=== PATIENT | male | born 1950 | race Caucasian/White ===

== ENCOUNTER → 2020-09-20 08:53 | Outpatient (BNVA) | payer BC, SELFPAY | PROVIDERS: PCP Internal Medicine; Visit Provider Hospitalist | DX: Z76.89 Persons encountering health services in other specified circumstances (principal) ==

== ENCOUNTER 2021-08-06 07:51 | Outpatient (REF) | payer OTHER, SELFPAY ==
--- NOTE | 2021-08-06 16:55 | PFT_ITS ---
Forced vital capacity is normal. FEV1, [id number] are markedly decreased. MVV is slightly decreased. Bronchodilator challenge not provided because the patient had used albuterol and Symbicort prior to this test. Total lung capacity is moderately increased and residual volume is also moderately increased. Diffusion capacity markedly decreased. CONCLUSION: Severe obstructive airway disorder with evidence of hyperinflation and air trapping. Bronchodilator challenge not given. Clinical correlation recommended. MD STEVE Nunes/SPENCER / [id number]
== END 2021-08-06 07:52 | disposition home or self-care (01) ==
LOC: HO.RESP 07:51
PROVIDERS: PCP Internal Medicine; Visit Provider Hospitalist
DX: J44.9 Chronic obstructive pulmonary disease, unspecified (principal)
CPT/HCPCS: 94010; 94727; 94729

== ENCOUNTER 2021-10-15 13:04 | Outpatient (REF) | payer OTHER, SELFPAY ==
--- NOTE | ~2021-10-15 | CT_ITS ---
EXAMINATION: CT CHEST SCREENING CLINICAL INFORMATION: Current smoker. Greater than 40 pack-year history. COMPARISON: Previous chest CT July 2019 TECHNIQUE: Multidetector volumetric CT imaging of the chest is performed without contrast using low dose technique. Additional 2D coronal and sagittal reformatted images and axial 3D maximum intensity projection (MIP) images are generated on the CT workstation. This CT examination was performed using dose optimization techniques as appropriate, variously including the following: *Automated exposure control *Adjustment of mA and/or kV according to patient size (this includes techniques or standardized protocols for targeted exams where dose is matched to indication/reason for exam; i.e. extremities or head) *Use of iterative reconstruction technique DLP: 57 mGy-cm FINDINGS: LUNGS: There is evidence of emphysema. There is mild biapical pleural parenchymal scarring. The lungs are otherwise clear. There are small left lower lobe pulmonary nodules that are stable, for example measuring 1 to 2 mm axial image 346 series 5. There is linear scarring or chronic subsegmental atelectasis in the left lower lobe. MEDIASTINUM: There is mild coronary artery calcification. The mediastinum is otherwise normal. PLEURA: There is no pleural effusion. No pleural mass or thickening. AXILLA: No lymphadenopathy. UPPER ABDOMEN: Unremarkable OSSEOUS STRUCTURES: Unremarkable. CT/CT lung screening IMPRESSION: Emphysema. Stable small left lower lobe pulmonary nodules and left lower lobe scarring or chronic subsegmental atelectasis.. Mild coronary artery calcification. ASSESSMENT: Lung-RADS category 2: Benign RECOMMENDATION: Annual low-dose chest CT follow-up recommended.
== END 2021-10-15 13:05 | disposition home or self-care (01) ==
LOC: HO.CT 13:04
PROVIDERS: Visit Provider Physician Assistant Medical
DX: Z12.2 Encounter for screening for malignant neoplasm of respiratory organs (principal); Z87.891 Personal history of nicotine dependence
CPT/HCPCS: 71271

== ENCOUNTER 2022-07-09 07:49 | Outpatient (REF) | payer OTHER, SELFPAY ==
--- NOTE | 2022-07-09 | PFT_ITS ---
Forced vital capacity 119%, FEV1 of 61%, FEV1/FVC ratio is 38. FEF 25/75 of 17% and MVV 57%. Post bronchodilator therapy, there is a slight improvement in FEV1 and FEF 25/75. Total lung capacity 117% and residual volume 112%. Diffusion capacity 43%. CONCLUSIONS: These results are consistent with severe obstructive airway disorder. There is partial reversibility with bronchodilator therapy. Clinical correlation recommended. MD STEVE Nunes/SPENCER / [id number]
== END 2022-07-09 07:50 | disposition home or self-care (01) ==
LOC: HO.RESP 07:49
PROVIDERS: PCP Internal Medicine; Visit Provider Hospitalist
DX: Z23 Encounter for immunization (principal); J44.9 Chronic obstructive pulmonary disease, unspecified; R91.8 Other nonspecific abnormal finding of lung field
CPT/HCPCS: 90471; 90686; 94060; 94618; 94727; 94729

== ENCOUNTER 2023-06-13 08:49 | Outpatient (AMB) | payer OTHER, SELFPAY ==
[2023-06-13 08:54] VITALS: BP 128/70; PULSE 68; O2SAT 96; BMI 24.8
--- NOTE | 2023-06-13 08:54 | A.OFFVIS_ITS ---
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 Overall doing well. Complains of cough, non productive, mild in nature. Using Symbicort with good effect. Denies any dyspnea. Went for 6 minute walk maintaining pox 96%. Had LDCT scan with RADS 2. Pulmonary nodules noted. ALso noted to have a large abdominal cyst. Has a referral with surgery at this time. 09/20/2020 the patient is here for pulm onary follow-up visit. Overall the patient is doing well. He has continued to use his respiratory medications with good effect. He has known pulmonary nodules was postponed to 2020 due the covid19 infections. 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 08/06/2021 the patient is here for a pul monary follow-up visit. Overall the patient has been feeling well. He has been coughing up more mucus lately. The color is been yellowish to green. It is moderate severity. This is something new for the last few weeks. Patient has not taking any medicines for it he continues to be on the Symbicort and Spiriva good effect. He also has a rescue inhaler. He did have pulmonary function studies today that we did look at. It appears that he does have a moderate degree of COPD. Trapping hyperinflation due to his COPD and there is a significant diffuse impairment. The patient did have a 6 minutes walk test. He did walk very well in the family. He did saturate down to 90% with activity. He quickly improved to 95% with rest. The patient does not qualify for oxygen. He still driving has a [employer] license. At this point the patient is doing well will continue to work without any limitations from a respiratory status. Of the patient has not had his CT scan of the chest as part of the lung cancer screening program. Will look into this further because he should be getting 1 this year 2020. 07/09/2022 the patient is here for a pulmonary follow-up visit. Overall the patient continues to do very well. He continues to work full-time as well. He denies any significant shortness of breath chest pains or any significant cough. The patient is compliant with his respiratory medications including Symbicort Spiriva and does have a rescue inhaler. He rarely uses a rescue inhaler at this time. The patient did undergo pulmonary function studies demonstrating moderate degree of COPD which is very similar to his previous. In addition to that he did go for 6 minutes walk test and maintain a saturation of the 94% with the activity. 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 The patient also is participating in the lung cancer screening program. His last CT scan was in October 2021. He will be scheduled to have another CT scan in October 2022. 06/13/2023 the patient is here for pulmona ry follow-up visit. Overall he is doing great. He continues with respiratory therapy. He is will be going surgery for his bladder issues. From a respiratory status he has no limitations. The patient continues to work full-time. The patient has not had any respiratory complaints. The patient has not required any prednisone or any hospitalizations. He will undergo spirometry today 6 minutes walk test. The patient is doing very well and is able to continue working without any limitations. [facility] Medical History (Updated 06/15/23 @ 20:58 by Elvin Canchola MD) Pulmonary nodules Unspecified chronic bronchitis COPD (chronic obstructive pulmonary disease) Social History (Updated 08/06/21 @ 09:24 by SHIRLEY Palacios) Patient Tobacco Use Status: Former Tobacco user Tobacco use type: Cigarette Years Smoked: 40 years Review of Systems Const Denies night sweats ENT Denies change in voice, Denies lip swelling, Denies mouth pain, Reports nasal congestion, Reports nasal discharge and Denies tongue swelling Card Denies chest pain Resp Reports cough GI Denies abdominal pain Musc Denies no additional complaints Neuro Denies Neuro-related abnormal movements Psych Denies no additional complaints Venkatesh/Lymph Denies easy bleeding and Denies lymphadenopathy Aller/Immun Denies lip swelling and Denies tongue swelling Physical Exam Vital Signs: Last Vital Signs Pulse 68 06/13/23 08:54 BP 128/70 06/13/23 08:54 Pulse Ox 96 06/13/23 08:54 Oxygen Delivery Method Room Air 06/13/23 08:54 BMI result Body Mass Index 24.8 Const General: alert Neck Neck: Yes normal visual inspection, Yes full ROM and Yes no lymphadenopathy Chest Chest palpation & inspection: normal inspection of the chest Resp Auscultation: diminished lung sounds Cardio Rate: regular rate Rhythm: regular rhythm Heart sounds: S1 normal heart sound present and S2 normal heart sound present GI Palpation (GI): Soft to palpation and nontender Auscultation: normal bowel sounds Skin General skin exam: rashes and/or lesions noted Office Procedures 6 Minute Walk Time:: 20:57 SPO2 % at rest: 96 Pulse at rest: 89 SPO2 % during excercise: 92 Pulse during excercise: 97 Distance in yards walked: 300 Arturo Score: 3 75291 - 6 Minute Walk Spirometry Testing Spirometry Comments: Moderate COPD, inchanged from 2021 26705- Spirometry Assessment & Plan Assessment & Plan (1) COPD (chronic obstructive pulmonary disease): Code(s): J44.9 - Chronic obstructive pulmonary disease, unspecified Qualifiers: COPD type: chronic bronchitis Chronic bronchitis type: simple Qualified Code(s): J41.0 - Simple chronic bronchitis Plan: Continue 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 therapy 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 (2) Pulmonary nodules: Code(s): R91.8 - Other nonspecific abnormal finding of lung field Plan: CT chest scheduled for 2020 Plan Continue Symbicort and Spiriva daily Short-acting beta agonist as needed 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 without any respiratory limitations LDCT 09/2023 Follow-up in 1 year with repeat 6 minutes walk test Coding Level of Care Code Est Pt Level 4 (00547) Diagnoses Simple chronic bronchitis J41.0 COPD type: chronic bronchitis Chronic bronchitis type: simple Pulmonary nodules R91.8 CPT Codes Coding ([id number]) Spirometry - CPT: 12883- Spirometry ([id number]) Time Spent (min) 18
[2023-06-15 20:57] VITALS: PULSE 89; O2SAT 96
== END 2023-06-13 09:28 | disposition home or self-care (01) ==
PROVIDERS: PCP Internal Medicine; Visit Provider Hospitalist
DX: J41.0 Simple chronic bronchitis (principal); R91.8 Other nonspecific abnormal finding of lung field
CPT/HCPCS: 94010; 94618; 99214

== ENCOUNTER → 2023-06-13 08:49 | Outpatient (BNVA) | payer OTHER, SELFPAY | PROVIDERS: PCP Internal Medicine; Visit Provider Hospitalist | DX: J41.0 Simple chronic bronchitis (principal); R91.8 Other nonspecific abnormal finding of lung field; Z79.899 Other long term (current) drug therapy | CPT/HCPCS: 94010; 94618 ==

== ENCOUNTER 2023-09-24 09:16 | Outpatient (REF) | payer OTHER, SELFPAY | END 2023-09-24 09:17 | disposition home or self-care (01) | LOC: HO.CT 09:16 | PROVIDERS: PCP Internal Medicine; Visit Provider Physician Assistant Medical | DX: Z12.2 Encounter for screening for malignant neoplasm of respiratory organs (principal); Z87.891 Personal history of nicotine dependence | CPT/HCPCS: 71271 ==

== ENCOUNTER 2023-12-25 09:32 | Outpatient (AMB) | payer OTHER, SELFPAY ==
[2023-12-25 09:47] VITALS: BP 140/80; PULSE 81; O2SAT 95; BMI 24.7
--- NOTE | 2023-12-25 09:47 | HO.NEPHOV_ITS ---
HPI HPI Comments History of Present Illness Details Mo is a 73-year-old gentleman whom had the privilege of seeing in follow-up for his hypertension. 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 He does not have any headache, visual disturbances, chest pain, shortness of breath, paroxysmal nocturnal dyspnea, orthopnea, pedal edema, fever, urinary symptoms. He has no history of coronary artery disease, congestive heart failure, carotid stenosis, CVA, peripheral arterial disease. He does not take excessive sodium in the diet. He had prostatic symptoms and recently underwent surgery. He catheterizes couple times a day. He is concerned about his labile blood pressure. [facility] Medical History (Updated 12/25/23 @ 21:41 by James Mercado MD) Pulmonary nodules Unspecified chronic bronchitis COPD (chronic obstructive pulmonary disease) Surgical History (Updated 12/25/23 @ 09:49 by Camille Lee) History of prostate surgery (~10/2023) Social History Patient Tobacco Use Status: Former Tobacco user Tobacco use type: Cigarette Years Smoked: 40 years Vital Signs 12/25/23 09:47 Height 5 ft 10 in Weight 172 lb BMI 24.7 BP 140/80 H Blood Pressure Location Lt brachial Position Sitting Pulse 81 Pulse Source Pulse Oximeter Pulse Oximetry (%) 95 Oxygen Delivery Method Room Air Physical Exam Vital Signs: Last Vital Signs Pulse 81 12/25/23 09:47 BP 140/80 H 12/25/23 09:47 Pulse Ox 95 12/25/23 09:47 Oxygen Delivery Method Room Air 12/25/23 09:47 BMI result Body Mass Index 24.7 Const General: comfortable and no acute distress Orientation/consciousness: patient oriented x3 HEENT Head: Yes normocephalic Mouth: Normal oral and palatal mucosa present Eyes EOM: EOMs intact bilaterally Neck Neck: Yes supple Resp Auscultation: clear to auscultation bilaterally Cardio Jugular venous distension: no JVD Rate: regular rate GI Palpation (GI): Soft to palpation Auscultation: normal bowel sounds General: Yes no CVA tenderness Back/Spine/Pelvis Back: no CVA tenderness Skin General skin exam: no rashes or lesions noted Neuro General: patient oriented x3 and moves all extremities Extrem General: Yes no pedal edema Assessment & Plan Assessment & Plan (1) Hypertension: Code(s): I10 - Essential (primary) hypertension Qualifiers: Hypertension type: primary hypertension Qualified Code(s): I10 - Essential (primary) hypertension Plan Mo has longstanding hypertension. His renal functions have been normal. I increased his losartan to 75 mg daily which I may increase to 100 mg to keep his blood pressure at goal ,if needed. He does not consume excess sodium in the diet. I encouraged him to monitor his blood pressure at home. He does not take any nonsteroidal anti-inflammatories and keep up with good hydration. He is going to be followed up in the office in next couple of weeks for blood pressure recheck and optimization of medications if needed. His renal functions have been stable. I answered all his questions. Follow-up appointment given Coding Level of Care Code Est Pt Level 4 (29466) Diagnoses Primary hypertension I10 Hypertension type: primary hypertension Results Reviewed Nephrology Results: No Data to Display
== END 2023-12-25 10:20 | disposition home or self-care (01) ==
PROVIDERS: PCP Internal Medicine; Visit Provider Internal Medicine Nephrology
DX: I10 Essential (primary) hypertension (principal)
CPT/HCPCS: 99214

== ENCOUNTER → 2023-12-25 09:32 | Outpatient (BNVA) | payer OTHER, SELFPAY | PROVIDERS: PCP Internal Medicine; Visit Provider Internal Medicine Nephrology ==

== ENCOUNTER 2024-01-08 10:02 | Outpatient (AMB) | payer OTHER, SELFPAY ==
--- NOTE | 2024-01-08 10:16 | HO.NEPHOV_ITS ---
HPI HPI Comments History of Present Illness Details Mo is a 73-year-old gentleman whom had the privilege of seeing in follow-up for his hypertension. 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 He does not have any headache, visual disturbances, chest pain, shortness of breath, paroxysmal nocturnal dyspnea, orthopnea, pedal edema, fever, urinary symptoms. He has no history of coronary artery disease, congestive heart failure, carotid stenosis, CVA, peripheral arterial disease. He does not take excessive sodium in the diet. He had prostatic symptoms and recently underwent surgery. He catheterizes couple times a day. He is concerned about his labile blood pressure even though its better. 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 [facility] Medical History (Updated 12/25/23 @ 21:41 by James Mercado MD) Pulmonary nodules Unspecified chronic bronchitis COPD (chronic obstructive pulmonary disease) Surgical History History of prostate surgery (~10/2023) Social History Patient Tobacco Use Status: Former Tobacco user Tobacco use type: Cigarette Years Smoked: 40 years Vital Signs 01/08/24 10:17 Height 5 ft 10 in Weight 177 lb 6 oz BMI 25.4 BP 130/70 Blood Pressure Location Lt brachial Position Sitting Pulse 86 Pulse Source Pulse Oximeter Pulse Oximetry (%) 96 Oxygen Delivery Method Room Air Physical Exam Vital Signs: Last Vital Signs Pulse 86 01/08/24 10:17 BP 140/90 H 01/08/24 10:17 Pulse Ox 96 01/08/24 10:17 Oxygen Delivery Method Room Air 01/08/24 10:17 BMI result Body Mass Index 25.4 Const General: comfortable and no acute distress Orientation/consciousness: patient oriented x3 HEENT Head: Yes normocephalic Mouth: Normal oral and palatal mucosa present Eyes EOM: EOMs intact bilaterally Neck Neck: Yes supple Resp Auscultation: clear to auscultation bilaterally Cardio Jugular venous distension: no JVD Rate: regular rate GI Palpation (GI): Soft to palpation Auscultation: normal bowel sounds General: Yes no CVA tenderness Back/Spine/Pelvis Back: no CVA tenderness Skin General skin exam: no rashes or lesions noted Neuro General: patient oriented x3 and moves all extremities Extrem General: Yes no pedal edema Assessment & Plan Assessment & Plan (1) Hypertension: Code(s): I10 - Essential (primary) hypertension Qualifiers: Hypertension type: primary hypertension Qualified Code(s): I10 - Essential (primary) hypertension Plan Mo has longstanding hypertension. His renal functions have been normal. He should continue losartan 75 mg daily which I may increase to 100 mg to keep his blood pressure at goal ,if needed, in the future. He does not consume excess sodium in the diet. I encouraged him to monitor his blood pressure at home. He does not take any nonsteroidal anti-inflammatories and keep up with good hy dration. He is going to be followed up in the office . His renal functions have been stable. I answered all his questions. Follow-up appointment given Orders: Orders Blood Urea Nitrogen Today I10 - Essential (primary) hypertension Electrolytes Today I10 - Essential (primary) hypertension Creatinine Today I10 - Essential (primary) hypertension Medications: Changed From losartan 75 mg PO DAILY To losartan 75 mg (1.5 x 50 mg) PO DAILY 90 days 135 tabs 3RF Coding Level of Care Code Est Pt Level 4 (84074) Diagnoses Primary hypertension I10 Hypertension type: primary hypertension Results Reviewed Nephrology Results: No Data to Display
[2024-01-08 10:17] VITALS: BP 130/70; PULSE 86; O2SAT 96; BMI 25.4
== END 2024-01-08 10:53 | disposition home or self-care (01) ==
PROVIDERS: PCP Internal Medicine; Visit Provider Internal Medicine Nephrology
DX: I10 Essential (primary) hypertension (principal)
CPT/HCPCS: 99214

== ENCOUNTER → 2024-01-08 10:02 | Outpatient (BNVA) | payer OTHER, SELFPAY | PROVIDERS: PCP Internal Medicine; Visit Provider Internal Medicine Nephrology ==

== ENCOUNTER 2024-01-13 08:41 | Outpatient (AMB) | payer OTHER, SELFPAY ==
--- NOTE | 2024-01-13 08:44 | MHC.OFFVIS ---
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 Overall doing well. Complains of cough, non productive, mild in nature. Using Symbicort with good effect. Denies any dyspnea. Went for 6 minute walk maintaining pox 96%. Had LDCT scan with RADS 2. Pulmonary nodules noted. ALso noted to have a large abdominal cyst. Has a referral with surgery at this time. 06/13/2023 the patient is here for pulmonary follow-up visit. Overall he is doing great. He continues with respiratory therapy. He is will be going surgery for his bladder issues. From a respiratory status he has no limitations. The patient continues to work full-time. The patient has not had any respiratory complaints. The patient has not required any prednisone or any hospitalizations. He will undergo spirometry today 6 minutes walk test. The patient is doing very well and is able to continue working without any limitations. 01/13/2024 the patient is here for a pulmonary follow-up visit. He has been complaining of a URI like symptoms. The patient has been having chest congestion and some sinus congestion. He has been sick now for about a week. Denies any fevers chills. His phlegm is congested in dark in color. Has not taking any prescription medications just [id number] Mucinex and Tylenol. He does feel a little bit tired. We did go for 6 minute walk test the patient was able to maintain a pulse ox above 88%. The lowest was 90%. Still lower than usual for him likely secondary to this viral illness. 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 Although, I do recommend that he can have a repeat 6 minute walk test in 6 months to make sure that he is recovered. He will require courses of antibiotics and short courses of Medrol to try and help him improve a little quicker. No imaging studies at this time unless the patient has any worsening symptoms. Will plan to have an x-ray done for his next visit in 6 months. [facility] Medical History (Updated 01/13/24 @ 14:29 by Elvin Canchola MD) Pulmonary nodules Unspecified chronic bronchitis COPD (chronic obstructive pulmonary disease) Surgical History History of prostate surgery (~10/2023) Social History Patient Tobacco Use Status: Former Tobacco user Tobacco use type: Cigarette Years Smoked: 40 years Review of Systems Const Denies night sweats ENT Denies change in voice, Denies lip swelling, Denies mouth pain, Reports nasal congestion, Reports nasal discharge, Reports post nasal drip and Denies tongue swelling Card Denies chest pain Resp Reports change in phlegm color, Reports chest congestion and Reports cough GI Denies abdominal pain Musc Denies no additional complaints Neuro Denies Neuro-related abnormal movements Psych Denies no additional complaints Venkatesh/Lymph Denies easy bleeding and Denies lymphadenopathy Aller/Immun Denies lip swelling and Denies tongue swelling Physical Exam Vital Signs: Last Vital Signs Pulse 87 01/13/24 08:45 BP 128/70 01/13/24 08:45 Pulse Ox 93 01/13/24 08:45 Oxygen Delivery Method Room Air 01/13/24 08:45 Const General: alert Neck Neck: Yes normal visual inspection, Yes full ROM and Yes no lymphadenopathy Chest Chest palpation & inspection: normal inspection of the chest Resp Auscultation: diminished lung sounds Cardio Rate: regular rate Rhythm: regular rhythm Heart sounds: S1 normal heart sound present and S2 normal heart sound present GI Palpation (GI): Soft to palpation and nontender Auscultation: normal bowel sounds Skin General skin exam: rashes and/or lesions noted Office Procedures 6 Minute Walk Time:: 09:41 SPO2 % at rest: 95 Pulse at rest: 78 SPO2 % during excercise: 90 Pulse during excercise: 89 Distance in yards walked: 300 Arturo Score: 3 57136 - 6 Minute Walk Assessment & Plan Assessment & Plan (1) COPD (chronic obstructive pulmonary disease): Code(s): J44.9 - Chronic obstructive pulmonary disease, unspecified Qualifiers: COPD type: chronic bronchitis Chronic bronchitis type: simple Qualified Code(s): J41.0 - Simple chronic bronchitis (2) Pulmonary nodules: Code(s): R91.8 - Other nonspecific abnormal finding of lung field (3) URI (upper respiratory infection): Code(s): J06.9 - Acute upper respiratory infection, unspecified Qualifiers: URI type: unspecified viral URI Qualified Code(s): J06.9 - Acute upper respiratory infection, unspecified Plan start Zpack start Medrol continue Mucinex as needed Continue Symbicort and Spiriva daily Short-acting beta agonist as needed 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
[2024-01-13 08:45] VITALS: BP 128/70; PULSE 87; O2SAT 93
[2024-01-13 09:41] VITALS: PULSE 78; O2SAT 95
== END 2024-01-13 09:06 | disposition home or self-care (01) ==
PROVIDERS: PCP Internal Medicine; Visit Provider Hospitalist
DX: J41.0 Simple chronic bronchitis (principal); R91.8 Other nonspecific abnormal finding of lung field; J06.9 Acute upper respiratory infection, unspecified
CPT/HCPCS: 94618; 99214

== ENCOUNTER → 2024-01-13 08:41 | Outpatient (BNVA) | payer OTHER, SELFPAY | PROVIDERS: PCP Internal Medicine; Visit Provider Hospitalist | DX: J41.0 Simple chronic bronchitis (principal); R91.8 Other nonspecific abnormal finding of lung field; J06.9 Acute upper respiratory infection, unspecified; Z79.899 Other long term (current) drug therapy | CPT/HCPCS: 94618 ==

== ENCOUNTER 2024-04-29 09:34 | Outpatient (AMB) | payer OTHER, SELFPAY ==
--- NOTE | 2024-04-29 09:45 | HO.NEPHOV_ITS ---
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 He does not have any headache, visual disturbances, chest pain, shortness of breath, paroxysmal nocturnal dyspnea, orthopnea, pedal edema, fever, urinary symptoms. He has no history of coronary artery disease, congestive heart failure, carotid stenosis, CVA, peripheral arterial disease. He does not take excessive sodium in the diet. He had prostatic symptoms and recently underwent surgery. He catheterizes couple times a day. His BP control is better. [facility] Medical History (Updated 01/13/24 @ 14:29 by Elvin Canchola MD) Pulmonary nodules Unspecified chronic bronchitis COPD (chronic obstructive pulmonary disease) Surgical History History of prostate surgery (~10/2023) Social History Patient Tobacco Use Status: Former Tobacco user Tobacco use type: Cigarette Years Smoked: 40 years Review of Systems Const All systems reviewed & are unremarkable except as noted in HPI and below Physical Exam Vital Signs: Last Vital Signs Pulse 71 04/29/24 09:46 BP 132/80 04/29/24 09:46 Pulse Ox 95 04/29/24 09:46 Oxygen Delivery Method Room Air 04/29/24 09:46 BMI result Body Mass Index 25.4 Const General: comfortable and no acute distress Orientation/consciousness: patient oriented x3 HEENT Head: Yes normocephalic Mouth: Normal oral and palatal mucosa present Eyes EOM: EOMs intact bilaterally Neck Neck: Yes supple Resp Auscultation: clear to auscultation bilaterally Cardio Jugular venous distension: no JVD Rate: regular rate GI Palpation (GI): Soft to palpation Auscultation: normal bowel sounds General: Yes no CVA tenderness Back/Spine/Pelvis Back: no CVA tenderness Skin General skin exam: no rashes or lesions noted Neuro General: patient oriented x3 and moves all extremities Extrem General: Yes no pedal edema Results Reviewed Nephrology Results: No Data to Display Assessment & Plan Assessment & Plan (1) Hypertension: Code(s): I10 - Essential (primary) hypertension Category: Medical Qualifiers: Hypertension type: primary hypertension Qualified Code(s): I10 - Essential (primary) hypertension Plan Mo has longstanding hypertension. His renal functions have been normal. He should continue losartan 100 mg daily to keep his blood pressure at goal . He does not consume excess sodium in the diet. I encouraged him to monitor his blood pressure at home. He does not take any nonsteroidal anti-inflammatories and keep up with good hydration. He is going to be followed up in the office . His renal functions have been stable. I answered all his questions. Coding Level of Care Code Est Pt Level 4 (40325) Diagnoses Primary hypertension I10 Hypertension type: primary hypertension
[2024-04-29 09:46] VITALS: BP 130/80; PULSE 71; O2SAT 95; BMI 25.4
== END 2024-04-29 10:01 | disposition home or self-care (01) ==
PROVIDERS: PCP Internal Medicine; Visit Provider Internal Medicine Nephrology
DX: I10 Essential (primary) hypertension (principal)
CPT/HCPCS: 99214

== ENCOUNTER → 2024-04-29 09:34 | Outpatient (BNVA) | payer OTHER, SELFPAY | PROVIDERS: PCP Internal Medicine; Visit Provider Internal Medicine Nephrology ==

== ENCOUNTER 2024-07-20 08:50 | Outpatient (AMB) | payer OTHER, SELFPAY ==
[2024-07-20 08:56] VITALS: BP 128/70; PULSE 68; O2SAT 97; BMI 25.6
--- NOTE | 2024-07-20 08:56 | MHC.OFFVIS ---
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 Overall doing well. Complains of cough, non productive, mild in nature. Using Symbicort with good effect. Denies any dyspnea. Went for 6 minute walk maintaining pox 96%. Had LDCT scan with RADS 2. Pulmonary nodules noted. ALso noted to have a large abdominal cyst. Has a referral with surgery at this time. 06/13/2023 the patient is here for pulmonary follow-up visit. Overall he is doing great. He continues with respiratory therapy. He is will be going surgery for his bladder issues. From a respiratory status he has no limitations. The patient continues to work full-time. The patient has not had any respiratory complaints. The patient has not required any prednisone or any hospitalizations. He will undergo spirometry today 6 minutes walk test. The patient is doing very well and is able to continue working without any limitations. 01/13/2024 the patient is here for a pulmonary follow-up visit. He has been complaining of a URI like symptoms. The patient has been having chest congestion and some sinus congestion. He has been sick now for about a week. Denies any fevers chills. His phlegm is congested in dark in color. Has not taking any prescription medications just [id number] Mucinex and Tylenol. He does feel a little bit tired. We did go for 6 minute walk test the patient was able to maintain a pulse ox above 88%. The lowest was 90%. Still lower than usual for him likely secondary to this viral illness. 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 Although, I do recommend that he can have a repeat 6 minute walk test in 6 months to make sure that he is recovered. He will require courses of antibiotics and short courses of Medrol to try and help him improve a little quicker. No imaging studies at this time unless the patient has any worsening symptoms. Will plan to have an x-ray done for his next visit in 6 months. 07/20/2024 patient is here for pulmonary follow-up visit. Overall the patient has been doing okay. Again he has a URI. He has been sick now for a couple weeks. Now bringing up some greenish yellowish phlegm. Moderate severity. Has been taking nbxz-exh-fojujap medications with only partial improvement. Will go inside the [place]. At that doxycycline but he does like milk and he understands that it may cause him to have increased adverse effects. Therefore will go ahead and just send him on [place]. The patient also is participating in the lung cancer screening program. 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 He has not had any issues. He is doing well overall. [facility] Medical History (Updated 01/13/24 @ 14:29 by Elvin Canchola MD) Pulmonary nodules Unspecified chronic bronchitis COPD (chronic obstructive pulmonary disease) Surgical History History of prostate surgery (~10/2023) Social History Patient Tobacco Use Status: Former Tobacco user Tobacco use type: Cigarette Years Smoked: 40 years Review of Systems Const Denies night sweats ENT Denies change in voice, Denies lip swelling, Denies mouth pain, Reports nasal congestion, Reports nasal discharge, Reports post nasal drip and Denies tongue swelling Card Denies chest pain Resp Reports change in phlegm color, Reports chest congestion and Reports cough GI Denies abdominal pain Musc Denies no additional complaints Neuro Denies Neuro-related abnormal movements Psych Denies no additional complaints Venkatesh/Lymph Denies easy bleeding and Denies lymphadenopathy Aller/Immun Denies lip swelling and Denies tongue swelling Physical Exam Vital Signs: Last Vital Signs Pulse 68 07/20/24 08:56 BP 128/70 07/20/24 08:56 Pulse Ox 97 07/20/24 08:56 Oxygen Delivery Method Room Air 07/20/24 08:56 BMI result Body Mass Index 25.6 Const General: alert Neck Neck: Yes normal visual inspection, Yes full ROM and Yes no lymphadenopathy Chest Chest palpation & inspection: normal inspection of the chest Resp Auscultation: diminished lung sounds Cardio Rate: regular rate Rhythm: regular rhythm Heart sounds: S1 normal heart sound present and S2 normal heart sound present GI Palpation (GI): Soft to palpation and nontender Auscultation: normal bowel sounds Skin General skin exam: rashes and/or lesions noted Office Procedures Flu Questionnaire Does the patient have a severe egg allergy?: No Does the patient have severe life threatening allergies?: No Does the patient have a fever or illness today?: No Has the patient ever had Guillain-Girard Syndrome?: No Has the patient ever had any past reaction to a flu shot?: No Immunizations Fluarix Triv [id number] (PF) 45 mcg (15 mcg x 3)/0.5 mL IM syringe Performing Provider: Elvin Canchola MD Performing Location: [facility] [place] Pulmonology Services Administered by: Elvin Canchola MD on 07/20/24 12:02 Dose Route Admin Location Dispensed Lot Number Expiration Date [employer]er 0.5 mL IM Left Deltoid 0.5 mL [id number] 04/04/25 50590-767-80 Fund Recs VIS Given Date VIS Provided VIS Publication Date 07/20/24 Single Vaccine 21 Eligibility Eligibility Date Funding Source Not [facility] Eligible 07/20/24 Private Assessment & Plan Assessment & Plan (1) COPD (chronic obstructive pulmonary disease): Code(s): J44.9 - Chronic obstructive pulmonary disease, unspecified Category: Medical Qualifiers: COPD type: chronic bronchitis Chronic bronchitis type: simple Qualified Code(s): J41.0 - Simple chronic bronchitis (2) Pulmonary nodules: Code(s): R91.8 - Other nonspecific abnormal finding of lung field Category: Medical (3) URI (upper respiratory infection): Code(s): J06.9 - Acute upper respiratory infection, unspecified Category: Medical Qualifiers: URI type: unspecified viral URI Qualified Code(s): J06.9 - Acute upper respiratory infection, unspecified Plan start ZTX continue Mucinex as needed Continue Symbicort Spiriva daily for now, will have to change in the future Short-acting beta agonist as needed 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 without any respiratory limitations LDCT 09/2024 Follow-up in 6 months with repeat 6 minutes walk test Orders: Orders Influenza [id number] Immunization Today Z23 - Encounter for immunization Medications: New azithromycin 500 mg PO DAILY 5 tabs 0RF 5 days Discontinued azithromycin Discontinued Reason: Doctor's Order 500 mg PO DAILY 5 days 5 tabs 0RF Coding Level of Care Code Est Pt Level 4 (11825) Diagnoses Simple chronic bronchitis J41.0 COPD type: chronic bronchitis Chronic bronchitis type: simple Pulmonary nodules R91.8 Viral upper respiratory tract infection J06.9 URI type: unspecified viral URI Time Spent (min) 16
== END 2024-07-20 09:18 | disposition home or self-care (01) ==
PROVIDERS: PCP Internal Medicine; Visit Provider Hospitalist
DX: J41.0 Simple chronic bronchitis (principal); R91.8 Other nonspecific abnormal finding of lung field; J06.9 Acute upper respiratory infection, unspecified; Z23 Encounter for immunization
CPT/HCPCS: 99214

== ENCOUNTER → 2024-07-20 08:50 | Outpatient (BNVA) | payer OTHER, SELFPAY | PROVIDERS: PCP Internal Medicine; Visit Provider Hospitalist | DX: J44.9 Chronic obstructive pulmonary disease, unspecified (principal); R91.8 Other nonspecific abnormal finding of lung field; J06.9 Acute upper respiratory infection, unspecified; Z23 Encounter for immunization | CPT/HCPCS: 90471; 90656 ==

== ENCOUNTER 2024-09-28 07:44 | Outpatient (REF) | payer OTHER, SELFPAY | END 2024-09-28 07:45 | disposition home or self-care (01) | LOC: HO.CT 07:44 | PROVIDERS: PCP Internal Medicine; Visit Provider Physician Assistant Medical | DX: Z12.2 Encounter for screening for malignant neoplasm of respiratory organs (principal); Z87.891 Personal history of nicotine dependence | CPT/HCPCS: 71271 ==

== ENCOUNTER → 2024-09-28 07:45 | Outpatient (BNV) | payer OTHER, SELFPAY | PROVIDERS: PCP Internal Medicine; Visit Provider Radiology Diagnostic Radiology | DX: Z12.2 Encounter for screening for malignant neoplasm of respiratory organs (principal); Z87.891 Personal history of nicotine dependence | CPT/HCPCS: 71271 ==

== ENCOUNTER 2024-11-23 12:51 | Outpatient (AMB) | payer OTHER, SELFPAY ==
[2024-11-23 12:55] VITALS: BP 146/80; PULSE 102; O2SAT 91; BMI 25.4
--- NOTE | 2024-11-23 12:55 | A.OFFVIS_ITS ---
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 offered & declined Accompanied by: Self / Same As Patient Allergies bee venom protein (honey bee) Allergy (Verified 11/23/24 13:00) Unknown Bees Allergy (Mild, Uncoded 11/23/24 13:00) swelling Medication List - Last Reconciled 11/23/24 by Mary Rene LPN albuterol sulfate 90 mcg/actuation 2 puffs PO Q4-6H PRN latanoprost 0.005% 1 drp ophthalmic (eye) BEDTIME losartan 75 mg (1.5 x 50 mg) PO DAILY 90 days Spiriva with HandiHaler (tiotropium bromide) 1 cap inhalation DAILY 90 days NS Symbicort 160-4.5 mcg/actuation (budesonide-formoterol) 2 puffs inhalation BID 90 days NS HPI HPI Cough prod with green mucus: Details: Mo is a pleasant 74 year old male, former smoker, with underlying COPD. At baseline, he is moderately controlled on Spiriva, Symbicort and albuterol MDI. He is under the care of Dr. Canchola and presents today for an acute visit. He initially was treated on 11/17 with azithromycin 500 mg x 5 days as well as prednisone for increased dyspnea, chest congestion, dry cough and wheezing. Unfortunately, he reports minimal improvement and continues with chest congestion, productive cough with yellowish green sputum and wheezing. He endorses chills, denies fevers. He has been using albuterol MDI 3-4 times per day with suboptimal effect. [facility] Medical History (Updated 11/23/24 @ 13:11 by Rosanna Pyle NP) Personal history of nicotine dependence Pulmonary nodules Unspecified chronic bronchitis COPD (chronic obstructive pulmonary disease) Surgical History History of prostate surgery (~10/2023) Social History Patient Tobacco Use Status: Former Tobacco user Tobacco use type: Cigarette Years Smoked: 40 years Review of Systems Const Reports chills, Denies excessive sweating, Denies fever(s), Denies headache(s) and Denies night sweats Eyes Denies dry eyes, Denies irritation and Denies itchy eyes ENT Reports Normal hearing present, Denies headache(s), Denies nasal congestion, Denies nasal discharge, Denies post nasal drip and Denies sore throat Card Denies chest pain, Denies chest pain at rest, Denies chest pain with activity, Denies claudication, Denies leg edema, Reports dyspnea on exertion, Denies orthopnea and Denies paroxysmal nocturnal dyspnea Resp Reports change in phlegm color, Reports chest congestion, Reports cough, Denies hemoptysis, Reports excessive phlegm production, Denies pain on inspiration, Denies pain with cough, Reports dyspnea on exertion, Denies stridor and Reports wheezing Musc Denies myalgias Neuro Reports Normal hearing present and Denies headache(s) Endo Denies excessive sweating Venkatesh/Lymph Denies lymphadenopathy Aller/Immun Denies itchy eyes, Denies seasonal rhinorrhea and Reports wheezing Physical Exam Vital Signs: Last Vital Signs Pulse 102 H 11/23/24 12:55 BP 146/80 H 11/23/24 12:55 Pulse Ox 91 L 11/23/24 12:55 Oxygen Delivery Method Room Air 11/23/24 12:55 BMI result Body Mass Index 25.4 Const General: cooperative, healthy appearing, comfortable, no acute distress, well developed and alert Orientation/consciousness: patient oriented x3 Limitations: no limitations HEENT Head: Yes normal to inspection, Yes normocephalic and Yes atraumatic Ears: hearing grossly normal bilaterally and external ears normal Eyes General: appearance normal, both eyes and all related structures Eyelids: Yes eyelids normal Sclerae: sclerae normal EOM: EOMs intact bilaterally Neck Neck: Yes normal visual inspection and Yes no lymphadenopathy Lymphatic: no lymphadenopathy noted Chest Chest palpation & inspection: normal inspection of the chest Resp Other: minimally improved with DuoNeb Effort & Inspection: normal respiratory effort, able to speak in complete sentences, no audible wheezes, no cough, no stridor, not tachypneic, no tripod positioning and no use of accessory muscles Auscultation: rhonchi and diminished lung sounds Cardio Jugular venous distension: no JVD Rate: regular rate Rhythm: regular rhythm Skin Other: warm, dry General skin exam: no rashes or lesions noted Neuro General: patient oriented x3 Cranial nerves: Yes Normal hearing present Cognition (Neuro): normal cognition Gait exam (Neuro): Normal gait present Extrem General: Yes normal to inspection, Yes capillary refill normal, Yes no clubbing, cyanosis or edema and Yes no pedal edema Psych Appearance: grossly normal and well kempt Speech and movement: Normal speech and movement present and Clear speech present Affect: normal affect Attitude: cooperative Thought process: Normal thought process present Thought content: Normal thought content present Insight: Good insight present (Psych) Judgement: Good judgement present (Psych) Office Procedures Nebulizer Treatment Nebulizer Treatment [id number] RX initial, or Nebulizer Subsequent Treatment Office Meds ipratropium 0.5 mg-albuterol 3 mg (2.5 mg base)/3 mL nebulization soln Performing Provider: Rosanna Pyle NP Performing Location: [facility] [place] Pulmonology Services-[facility] Administered by: Mary Rene LPN on 11/23/24 13:19 Dose Route Admin Location Dispensed Lot Number Expiration Date [facility] Nail Galvanizer 3 mL inhalation 3 mL [id number] 06/05/26 60725-703-39 [employer] Business Assessment & Plan Assessment & Plan (1) COPD (chronic obstructive pulmonary disease): Code(s): J44.9 - Chronic obstructive pulmonary disease, unspecified Category: Medical Qualifiers: COPD type: chronic bronchitis Chronic bronchitis type: simple Qualified Code(s): J41.0 - Simple chronic bronchitis (2) Pulmonary nodules: Code(s): R91.8 - Other nonspecific abnormal finding of lung field Category: Medical Plan Will treat bronchitic symptoms with Vantin and prednisone. Will also send for CXR today. He is aware if symptoms worsen or do not improve to seek emergent care. Patient will also return next week to assess need for supplemental oxygen prior to returning to work. All questions were answered and patient is in agreement of plan. Will follow up for regularly scheduled appointment with Dr. Canchola or sooner if needed. Orders: Orders XR chest 2V Today R05.9 - Cough, unspecified AMB Nebulizer Treatment Today J41.0 - Simple chronic bronchitis Medications: New prednisone see taper instructions; 40 mg Daily x3 days, 30 mg daily x3 days, 20 mg daily x3 days, 10 mg daily x3 days 10 mg PO DIRECTED 30 tabs 0RF cefpodoxime must administer with a meal/food 200 mg PO BID 20 tabs 0RF Coding Level of Care Code Est Pt Level 4 (78692) Diagnoses Simple chronic bronchitis J41.0 COPD type: chronic bronchitis Chronic bronchitis type: simple Pulmonary nodules R91.8 CPT Codes Nebulizer Treatment - Nebulizer Treatment, initial or subsequent: 48795- Nebulizer/MDI RX initial, or Nebulizer Subsequent Treatment ([id number])
--- OUTSIDE RECORDS SUMMARY | 2024-11-23 13:44 | XMS_ITS | Clinical Summary ---
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 Name Role Phone Km Scott MD Primary Care Provider Allergies Active Allergy Reactions Criticality Noted Date Comments Bee Venom 11/13/2018 Medications albuterol HFA (PROVENTIL HFA;VENTOLIN HFA) 108 (90 Base) MCG/ACT inhaler 2 puffs by Other route if needed Active budesonide-form oterol (SYMBICORT) 160-4.5 MCG/ACT inhaler Inhale 1 puff if needed Active tiotropium (Spiriva HandiHaler) 18 MCG per inhalation capsule 1 puff by Other route 1 (one) time each day Active tamsulosin (FLOMAX) 0.4 MG 24 hr capsule Take 1 capsule by mouth 1 (one) time each day Active latanoprost (XALATAN) 0.005 % ophthalmic solution INSTILL 1 DROP IN BOTH EYES EVERY DAY IN THE EVENING 06/15/2021 Active finasteride (PROSCAR) 5 MG tablet Take 1 tablet by mouth 1 (one) time each day 05/16/2021 Active losartan (COZAAR) 50 MG tabletIndicatio ns:Hypertension Take 1 tablet (50 mg total) by mouth 1 (one) time each day 90 tablet 3 06/12/2023 Active Active Problems Problem Noted Date Diagnosed Date Hypertension 08/02/2021 Essential hypertension 01/18/2016 Resolved Problems Problem Noted Date Diagnosed Date Resolved Date Administrative reason for encounter 01/18/2016 08/01/2021 Chronic obstructive pulmonary disease 01/18/2016 08/01/2021 Inguinal hernia 05/08/2012 08/01/2021 Elevated prostate specific antigen (PSA) 10/21/2011 08/01/2021 Peripheral venous insufficiency 10/21/2011 08/01/2021 Immunizations Name Administration Dates Next Due Pneumococcal Conjugate 13-Valent 07/24/2015 Family History Medical History Relation Comments Cancer Mother Heart disease Mother Stroke Mother Relation Status Comments Father Mother Social History Tobacco Use Types Packs/Day Years Used Date Smoking Tobacco: Never Smokeless Tobacco: Never Tobacco Cessation:Counseling Given: Not Answered Alcohol Use Standard Drinks/Week Comments No 0 (1 standard drink = 0.6 oz pur e alcohol) Sex and Gender Information Value Date Recorded Sex Assigned at Not on file Legal Sex Male 5:07 PM EST Gender Identity Not on file Sexual Orientation Not on file Last Filed Vital Signs Vital Sign Reading Time Taken Comments Blood Pressure 128/80 06/12/2023 4:20 PM EDT Pulse 74 06/12/2023 4:20 PM EDT Temperature - - Respiratory Rate - - Oxygen Saturation 98% 07/04/2022 3:20 PM EDT Inhaled Oxygen Concentration - - Weight 78.2 kg (172 lb 6.4 oz) 12/23/2022 2:17 P M EDT Height 177.8 cm (5' 10 ) 09/14/2020 12:00 PM EST Body Mass Index 24.74 09/14/2020 12:00 PM EST Plan of Treatment Health Maintenance Due Date Last Done Comments Colorectal Cancer Screening: Annual FOBT 1999 Colorectal Cancer Screening: Colonoscopy 1999 Colorectal Cancer Screening: Sigmoidoscopy 1999 Pneumococcal Vaccine: 65+ Ye ars (2 of 2 - PPSV23 or PCV20) 09/18/2015 07/24/2015 Influenza Vaccine (#1) 2024 Hepatitis B Vaccine Aged Out No longe r eligible based on patient's age to complete this topic Insurance [facility] Care Teams Finished Cloth Checker Relationship Specialty Start Date End Date Km Scott MD [address] [place] [address] PCP - General 10/16/20
--- OUTSIDE RECORDS SUMMARY | 2024-11-23 13:44 | XMS_ITS | Encounter Summary ---
Author Organization [facility] Address [address] [place] [address] Care Team Providers Care Fruit Raiser Name Role Phone Unavailable Primary Care Provider Unavailabl e Encounter Details Date Type Department Care Team (Late st Contact Info) Description 08/18/[address] [facility] - Main Lab [address] [place] [phone] Orly Renee NP [address] [place] [address] Other abnormal findings on microbiological examination of urine Social History Tobacco Use Types Packs/Day Years Used Date Smoking Tobacco: Former Cigarettes Q uit: 10/06/2011 Smokeless Tobacco: Never Alcohol Use Standard Drinks/Week Comments Yes 0 (1 standard drink = 0.6 oz pur e alcohol) Sex and Gender Information Value Date Recorded Sex Assigned at Not on file Legal Sex Male 6:45 AM EST Gender Identity Not on file Sexual Orientation Not on file documented as of this encounter Plan of Treatment Not on file documented as of this encounter Procedures Procedure Name Priority Date/Time Associated Diagnosis Comments BACTERIAL IDENTIFICATION AND SUSCEPTIBILITY, AEROBIC Routine 08/17/2024 12:00 AM EST Other abnormal findings on microbiological examination of urine documented in this encounter Results * (ABNORMAL) Bacterial identification and susceptibility, aerobic (08/17/2024 12:00 AM EST) Culture, Bacterial ID and Sensitivity Staphylococcus epidermidis(A) MAHSA 08/20/2024 7:51 AM EST [facility] ([facility] Comment: Beta-lactamase positive Edited result: Previously reported as Gram Positive Cocci on 08/18/2024 at 1220 EST. Other Urine specimen from urethra / Unknown 08/17/2024 08/18/2024 11:57 AM EST Narrative Organism Antibiotic Method Susceptibility Staphylococcus epidermidis Benzylpenicillin MAHSA Resistant Comment:This is an a ppended report. These results have been appended to a previously preliminary verified report. Staphylococcus epidermidis Oxacillin MAHSA <=0.25 ug/ml: Susceptible Staphylococcus epidermidis Gentamicin MAHSA <=0.5 ug/ml: Susceptible Staphylococcus epidermidis Ciprofloxacin MAHSA <=0.5 ug/ml: Susceptible Staphylococcus epidermidis Levofloxacin MAHSA <=0.12 ug/ml: Susceptible Staphylococcus epidermidis Quinupristin/Dalfopristin M IC <=0.25 ug/ml: Susceptible Staphylococcus epidermidis Linezolid MAHSA 1 ug/ml: Susceptible Staphylococcus epidermidis Vancomycin MAHSA <=0.5 ug/ml: Susceptible Staphylococcus epidermidis Tetracycline MAHSA 2 ug/ml: Susceptible Staphylococcus epidermidis Nitrofurantoin MAHSA <=16 ug/ml: Susceptible Staphylococcus epidermidis Rifampin MAHSA <=0.5 ug/ml: Susceptible us Orly Renee REPORTING DEVELOPER LAB MICROBIOLOGY - GENERA L ORDERABLES Final Result [facility] ([facility]) [facility] [address] [place] [address], documented in this encounter Visit Diagnoses Diagnosis Other abnormal findings on microbiological examination of urine documented in this encounter
--- OUTSIDE RECORDS SUMMARY | 2024-11-23 13:44 | XMS_ITS | Clinical Summary ---
Author Organization [facility] Address [address] [place] [address] Care Team Providers Care Assembly Supervisor Name Role Phone Unavailable Primary Care Provider Unavailabl e Social History Tobacco Use Types Packs/Day Years Used Date Smoking Tobacco: Never Assessed Sex and Gender Information Value Date Recorded Sex Assigned at Not on file Legal Sex Male 6:10 AM EDT Gender Identity Not on file Sexual Orientation Not on file Plan of Treatment Health Maintenance Due Date Last Done Comments Hepatitis C Screening 1950 DTaP/Tdap/Td (1 - Tdap) 1968 Pneumococcal 50+ years (1 of 1 - PCV) 2000 Zoster (Shingrix) (1 of 2) 2000 COVID-19 Vaccine ( - 2023-2 5 season) 2024 Influenza (#1) 2024 RSV (1 - 1-dose 75+ series) 2025 Abdominal Aorta Imaging Discontinued HPV Vaccine Aged Out No longer eligi ble based on patient's age to complete this topic Hep A Aged Out No longer eligi ble based on patient's age to complete this topic Hep B Aged Out No longer eligi ble based on patient's age to complete this topic Hib Aged Out No longer eligi ble based on patient's age to complete this topic Meningococcal ACWY Aged Out No longer eligible based on patient's age to complete this topic Zoster (Zostavax) Discontinued
--- OUTSIDE RECORDS SUMMARY | 2024-11-23 13:44 | XMS_ITS | Encounter Summary ---
Author Organization [facility] Address [address] [place] [address] Care Team Providers Care Bed Control Specialist Name Role Phone Pcp, No Primary Care Provider Unavailabl e Encounter Details Date Type Department Care Team (Late st Contact Info) Description 01/18/2016 Scanned Document [address] [phone] Provider, Generic Social History Tobacco Use Types Packs/Day Years Used Date Smoking Tobacco: Never Assessed Sex and Gender Information Value Date Recorded Sex Assigned at Not on file Gender Identity Not on file Sexual Orientation Not on file documented as of this encounter Plan of Treatment Not on file documented as of this encounter Visit Diagnoses Not on filedocumented in this encounter Care Teams Bed Control Specialist Relationship Specialty Start Date End Date Pcp, No PCP - General General Medicine 08/18/15 documented as of this encounter
--- OUTSIDE RECORDS SUMMARY | 2024-11-23 13:44 | XMS_ITS | Clinical Summary ---
Author Organization LL [address] [place] [address] Address [address] [place] [address] Phone Care Team Providers Care Coat Operator Insulator Name Role Phone Unavailable Primary Care Provider Unavailabl e Surgical History Surgery Date Site/Laterality Comments HEMORRHOID SURGERY PROCEDURE: DESTRUCTION OF HEMORRHOIDS Medical History Medical History Date Comments Chronic obstructive pulmonar y disease (CMS/HCC) 07/21/2017 DX:Chronic obstructive pulmo nary disease (HCC) Elevated prostate specific a ntigen (PSA) 10/21/2011 DX:Elevated prostate specifi c antigen (PSA) Inguinal hernia 05/08/2012 DX:Inguinal macario ia Peripheral venous insufficiency 10/21/2011 DX:Peripheral venous insufficiency Social History Tobacco Use Types Packs/Day Years [...] on file Sexual Orientation Not on file Obstetrics History Plan of Treatment Health Maintenance Due Date Last Done Comments DTaP,Tdap,and Td Vaccines (1 - Tdap) 1969 Pneumococcal Vaccine: 50+ Ye ars (1 of 2 - PCV) 1969 Zoster Vaccines (1 of 2) 2000 RSV Immunization Patients 60 + Years Old (1 - Risk 60-74 years 1-dose series) 2010 Abdominal Aortic Aneurysm (A AA) Screen 09/08/2022 Cholesterol Screening (Lipid Panel) 09/08/2022 Colorectal Cancer Screening: Colonoscopy 09/08/2022 Depression Screening 09/08/2022 Falls Risk Assessment 09/08/2022 Hepatitis C Screening 09/08/2022 Social Influencers of Health Screening 09/08/2022 COVID-19 Vaccine (1 - 2023-2 5 season) 2024 Influenza Vaccine (#1) 2024 HIB Vaccines Aged Out No longer eligi ble based on patient's age to complete this topic HPV Vaccines Aged Out No longer eligi ble based on patient's age to complete this topic Hepatitis A Vaccines Aged Out No long er eligible based on patient's age to complete this topic Hepatitis B Vaccines Aged Out No long er eligible based on patient's age to complete this topic IPV Vaccines Aged Out No longer eligi ble based on patient's age to complete this topic MMR Vaccines Aged Out No longer eligi ble based on patient's age to complete this topic Meningococcal ACWY Vaccine Aged Out N o longer eligible based on patient's age to complete this topic Meningococcal B Vacine Aged Out No lo nger eligible based on patient's age to complete this topic RSV Immunization Patients Un chelly 20 months Aged Out No longer eligible b ased on patient's age to complete this topic Varicella Vaccines Aged Out No longer eligible based on patient's age to complete this topic Insurance [facility] [place] [id number]
--- OUTSIDE RECORDS SUMMARY | 2024-11-23 13:44 | XMS_ITS | Clinical Summary ---
Author Organization [facility] Address [address] [place] [address] Care Team Providers Care Security Shift Manager Name Role Phone Pcp, No Primary Care Provider Unavailabl e Allergies No known active allergies Medications Medication Sig Dispensed Refills Start Date End Date Status VENTOLIN HFA 108 (90 BASE) MCG/ACT inhaler 1 11/17/2015 Active SYMBICORT 160-4.5 MCG/ACT inhaler 11 11/24/2015 Active losartan (COZAAR) 25 MG tablet 3 10/20/2015 Active SPIRIVA HANDIHALER 18 MCG inhalation capsule 1 01/08/2016 Active Active Problems Problem Noted Date Diagnosed Date Essential hypertension 01/18/2016 COPD (chronic obstructive pulmonary disease) Encounter for examination re quired by Department of Transportation (DOT) 01/18/2016 Social History Tobacco Use Types Packs/Day Years Used Date Smoking Tobacco: Never Assessed Sex and Gender Information Value Date Recorded Sex Assigned at Not on file Gender Identity Not on file Sexual Orientation Not on file Plan of Treatment Health Maintenance Due Date Last Done Comments Hepatitis C Virus Screening 1950 DTaP/Tdap/Td Vaccines (1 - Tdap) 1969 Pneumococcal Vaccines 50+ (1 of 1 - PCV) 2000 Zoster (Shingles) Vaccine (1 of 2) 2000 COVID-19 Vaccine ( - 2023-2 5 season) 2024 RSV Vaccine 60 years and old er and Patients (1 - 1-dose 75+ series) 2025 Hepatitis B Vaccines Aged Out No long er eligible based on patient's age to complete this topic Care Teams Security Shift Manager Relationship Specialty Start Date End Date Pcp, No PCP - General General Medicine 08/18/15
== END 2024-11-23 13:42 | disposition home or self-care (01) ==
PROVIDERS: PCP Internal Medicine; Visit Provider Nurse Practitioner Family
DX: J41.0 Simple chronic bronchitis (principal); R91.8 Other nonspecific abnormal finding of lung field
CPT/HCPCS: 99214

== ENCOUNTER → 2024-11-23 12:51 | Outpatient (BNVA) | payer OTHER, SELFPAY | PROVIDERS: PCP Internal Medicine; Visit Provider Nurse Practitioner Family | DX: J41.0 Simple chronic bronchitis (principal); R91.8 Other nonspecific abnormal finding of lung field | CPT/HCPCS: 94640 ==

== ENCOUNTER 2024-11-23 14:08 | Outpatient (REF) | payer OTHER, SELFPAY ==
--- NOTE | ~2024-11-23 | XR_ITS ---
EXAMINATION: XR CHEST CLINICAL INFORMATION: R05.9 - Cough, unspecified COMPARISON: LDCT 09/28/2024. TECHNIQUE: 2 views of the chest were obtained. FINDINGS: The cardiac, hilar, and mediastinal contours are normal. Lungs demonstrate diffuse hyperaeration consistent with COPD. There are increased patchy opacities in the right lung base, possibly right middle lobe and lower lobe. There is no focal osseous or soft tissue abnormality. XR/XR chest 2V IMPRESSION: 1. Findings consistent with COPD. 2. Patchy opacities right middle and lower lobe, suspicious for pneumonia/bronchopneumonia. Electronically signed by: Lázaro Stout MD 11/23/2024 02:49 PM KYLE
--- OUTSIDE RECORDS SUMMARY | 2024-11-23 15:11 | XMS_ITS | Encounter Summary ---
Author Organization [facility] Address [address] [place] [address] Care Team Providers Care Shuttlecock Feather Trimmer Name Role Phone Community, Pcp Primary Care Provider Unavailabl e Encounter Details Date Type Department Care Team Description 11/28/2017 Telephone Pulmonology - [place] [address] [facility] [address] [place] [address] Trisha Franz NP Social History Tobacco Use Types Packs/Day Years Used Date Smoking Tobacco: Former Cigarettes 1 Q uit: 2011 Alcohol Use Standard Drinks/Week Comments Yes 0 (1 standard drink = 0.6 oz pur e alcohol) Sex Assigned at Date Recorded Not on file documented as of this encounter Miscellaneous Notes * Telephone Encounter - Trisha Franz NP - 11/28/2017 1:10 PM EST Patient was called at home and informed of Chest X-ray results Will cancel appointment for Dec 02 per patient request documented in this encounter Plan of Treatment Not on file documented as of this encounter Visit Diagnoses Not on filedocumented in this encounter Care Teams Shuttlecock Feather Trimmer Relationship Specialty Start Date End Date Community, Pcp PCP - General Internal Medicine 11/26/17 documented as of this encounter
--- OUTSIDE RECORDS SUMMARY | 2024-11-23 15:11 | XMS_ITS | Encounter Summary ---
Author Organization [facility] Address [facility] [place] [address] Care Team Providers Care Coil Machine Supervisor Name Role Phone Community, Pcp Primary Care Provider Unavailabl e Encounter Details Date Type Department Care Team Description 01/28/2019 Release of Information Medical Records [address] [place] [address] Abstract, Provider Social History Tobacco Use Types Packs/Day Years Used Date Smoking Tobacco: Former Cigarettes 1 Q uit: 2011 Smokeless Tobacco: Never Alcohol Use Standard Drinks/Week Comments Yes 0 (1 standard drink = 0.6 oz pur e alcohol) Sex Assigned at Date Recorded Not on file documented as of this encounter Plan of Treatment Not on file documented as of this encounter Visit Diagnoses Not on filedocumented in this encounter Care Teams Coil Machine Supervisor Relationship Specialty Start Date End Date Community, Pcp PCP - General Internal Medicine 11/26/17 documented as of this encounter
--- OUTSIDE RECORDS SUMMARY | 2024-11-23 15:11 | XMS_ITS | Clinical Summary ---
Author Organization [facility] Address [address] [place] [address] Care Team Providers Care Machine Made Shoe Unit Worker Name Role Phone Pcp, No Primary Care [...] age to complete this topic Care Teams Machine Made Shoe Unit Worker Relationship Specialty Start Date End Date Pcp, No PCP - General General Medicine 08/18/15
--- OUTSIDE RECORDS SUMMARY | 2024-11-23 15:11 | XMS_ITS | Clinical Summary ---
Author Organization LL [address] [place] [address] Address [address] [place] [address] Phone Care Team Providers Care Machine Sander Name Role Phone Unavailable Primary Care Provider [...] patient's age to complete this topic Insurance [facility] [place] [id number]
--- OUTSIDE RECORDS SUMMARY | 2024-11-23 15:11 | XMS_ITS | Encounter Summary ---
Author Organization [facility] Address [address] [place] [address] Care Team Providers Care Senior Sharepoint Developer Name Role Phone Community, Pcp Primary Care Provider Unavailabl e Reason for Visit * Reason Onset Date Comments Provider Call Back 12/03/2017 Encounter Details Date Type Department Care Team Description 12/03/2017 Telephone Pulmonology - [address] [place] [address] Trisha Franz NP Provider Call Back Social History Tobacco Use Types Packs/Day Years Used Date Smoking Tobacco: Former Cigarettes 1 Q uit: 2011 Alcohol Use Standard Drinks/Week Comments Yes 0 (1 standard drink = 0.6 oz pur e alcohol) Sex Assigned at Date Recorded Not on file documented as of this encounter Miscellaneous Notes * Telephone Encounter - Trisha Franz NP - 12/09/2017 9:32 AM EST Called and spoke directly to the patient Informed of recent PFT's and 6 minute walk results Will come to the office to cotton picker operator a copy today * Telephone Encounter - Avani Dodd - 12/09/2017 8:43 AM EST Pt is returning Trisha's call. Please call him back. * Telephone Encounter - Trisha Franz NP - 12/08/2017 5:20 PM EST Called and left a message for patient to call back * Telephone Encounter - Jina Ocampo M.A. - 12/08/2017 2:16 PM EST Results in box please call pt * Telephone Encounter - Jina Ocampo M.A. - 12/04/2017 2:26 PM EST TC pt will call when results read * Telephone Encounter - Avani Dodd - 12/03/2017 11:20 AM EST Inform patient: ANY URGENT OR ABNORMAL RESULTS WIILL RESULT IN A CALL BACK TO THE PATIENT WILMAN. Type of test: :PFT Date test was performed: 12/02/2017 Where was the test performed: [facility] Who ordered this test?: Trisha Franz Is the doctor here today?: NO Can the message wait until the doctor returns?: NO IF PATIENT'S PCP IS NOT IN INSTRUCT PATIENT THAT THEY WILL RECEIVE A CALL BACK WHEN THE PCP IS IN THE OFFICE NEXT. documented in this encounter Plan of Treatment Not on file documented as of this encounter Visit Diagnoses Not on filedocumented in this encounter Care Teams Senior Sharepoint Developer Relationship Specialty Start Date End Date Community, Pcp PCP - General Internal Medicine 11/26/17 documented as of this encounter
--- OUTSIDE RECORDS SUMMARY | 2024-11-23 15:11 | XMS_ITS | Encounter Summary ---
Author Organization [facility] Address [address] [place] [address] Care Team Providers Care Frame Coverer Name Role Phone Community, Pcp Primary Care Provider Unavailabl e Reason for Visit * Reason Onset Date Comments refill request 06/16/2018 Encounter Details Date Type Department Care Team Description 06/16/2018 Refill Pulmonology - [place] [address] [facility] [address] [place] [address] Elvin Canchola MD refill request Social History Tobacco Use Types Packs/Day Years Used Date Smoking Tobacco: Former Cigarettes 1 Q uit: 2011 Alcohol Use Standard Drinks/Week Comments Yes 0 (1 standard drink = 0.6 oz pur e alcohol) Sex Assigned at Date Recorded Not on file documented as of this encounter Miscellaneous Notes * Telephone Encounter - Rhiannon Viramontes - 06/18/2018 8:56 AM EDT Patient calling back again today regarding same issue. Needs 90 day supply on the Spiriva Is running out of the medication Please review * Telephone Encounter - Perlita Judd - 06/17/2018 9:24 AM EDT Patient called in, picked up spirva. But was only given 30 days, it was a 90 day request. Can we please send over the corrected prescription. * Telephone Encounter - Perlita Judd - 06/16/2018 9:32 AM EDT Patient would like script to be: E-PRESCRIBED/FAXED TO PHARMACY WHEN WAS THE PATIENT'S LAST APPOINTMENT WITH THE PRESCRIBING PROVIDER? 11/27/17 Does patient have an upcoming appointment? Yes 07/27/18 (THE MEDICATION REQUESTED IS ON THE MED LIST ABOVE) All of the medications requested were on the CURRENT MEDS list Did you check the Pharmacy information above?: YES Patient wants: 90 -day supply Is this a mail order prescription request ? NO Patients current insurance carrier is: Payor: [employer] / Plan: POS $0 [id number] / Product Type: POS [id number] documented in this encounter Plan of Treatment Not on file documented as of this encounter Visit Diagnoses Not on filedocumented in this encounter Care Teams Frame Coverer Relationship Specialty Start Date End Date Community, Pcp PCP - General Internal Medicine 11/26/17 documented as of this encounter
--- OUTSIDE RECORDS SUMMARY | 2024-11-23 15:11 | XMS_ITS | Encounter Summary ---
Author Organization [facility] Address [facility] [place] [address] Care Team Providers Care Literary Writer Name Role Phone Community, Pcp Primary Care Provider Unavailabl e Encounter Details Date Type Department Care Team Description 12/08/2017 Transfer Records Medical Records [address] [place] [address] Abstract, Provider Social History Tobacco Use Types Packs/Day Years Used Date Smoking Tobacco: Former Cigarettes 1 Q uit: 2012 Alcohol Use Standard Drinks/Week Comments Yes 0 (1 standard drink = 0.6 oz pur e alcohol) Sex Assigned at Date Recorded Not on file documented as of this encounter Plan of Treatment Not on file documented as of this encounter Visit Diagnoses Not on filedocumented in this encounter Care Teams Literary Writer Relationship Specialty Start Date End Date Community, Pcp PCP - General Internal Medicine 11/26/17 documented as of this encounter
--- OUTSIDE RECORDS SUMMARY | 2024-11-23 15:11 | XMS_ITS | Clinical Summary ---
Author Organization [facility] Address [address] [facility] [address] [place] [address] Phone Care Team Providers Care Visiting Housekeeper Name Role Phone Km Scott MD Primary [...] patient's age to complete this topic Insurance [facility] Care Teams Visiting Housekeeper Relationship Specialty Start Date End Date Km Scott MD [address] [place] [address] PCP - General 10/16/20
--- OUTSIDE RECORDS SUMMARY | 2024-11-23 15:11 | XMS_ITS | Clinical Summary ---
Author Organization [facility] Address [address] [place] [address] Care Team Providers Care Lawn Sprinkler Servicer Name Role Phone Unavailable Primary Care Provider [...]
--- OUTSIDE RECORDS SUMMARY | 2024-11-23 15:11 | XMS_ITS | Encounter Summary ---
Author Organization [facility] Address [address] [place] [address] Care Team Providers Care Fiber Technologist Name Role Phone Pcp, No Primary Care Provider Unavailabl e Encounter Details Date Type Department Care Team (Late st Contact Info) Description 01/18/2016 Scanned Document [address] [phone] Provider, Generic Social History Tobacco Use Types [...] on filedocumented in this encounter Care Teams Fiber Technologist Relationship Specialty Start Date End Date Pcp, No PCP - General General Medicine 08/18/15 documented as of this encounter
--- OUTSIDE RECORDS SUMMARY | 2024-11-23 15:11 | XMS_ITS | Encounter Summary ---
Author Organization [facility] Address [address] [place] [address] Care Team Providers Care Electrical Instrument Repairer Name Role Phone Unavailable Primary Care Provider Unavailabl e Encounter Details Date Type Department Care Team (Late st Contact Info) Description 08/18/2024 Lab Requisition [facility] - Main Lab [address] [place] [phone] Orly Renee NP [address] [facility] [address] [place] [address] Other abnormal findings on microbiological examination of [...] Staphylococcus epidermidis(A) MAHSA 08/20/2024 7:51 AM EST [facility] ([facility] Comment: Beta-lactamase positive Edited result: Previously [...] MAHSA <=0.5 ug/ml: Susceptible us Orly Renee STRE[address] LIGHT CLEANER LAB MICROBIOLOGY - GENERA L ORDERABLES Final Result [facility] ([facility]) [facility] [address] [place] [address], documented in this encounter Visit Diagnoses Diagnosis Other abnormal findings on microbiological examination of urine documented in this encounter
--- OUTSIDE RECORDS SUMMARY | 2024-11-23 15:11 | XMS_ITS | Clinical Summary ---
Author Organization [facility] Address [address] [place] [address] Care Team Providers Care Academic Vice President Name Role Phone Community, Pcp Primary Care Provider Unavailabl e Allergies Active Allergy Reactions Severity Noted Date Comments Bee 11/13/2018 No Known Drug Allergies 10/21/2011 Medications Medication Sig Dispensed Refills Start Date End Date Status ALBUTEROL SULFATE 108 (90 BASE) MCG/ACT Aero Soln Inhale 2 Puffs into the lungs every 4 hours as needed for Cough or Wheezing. 3 Inhaler 3 09/25/2017 Active LOSARTAN POTASSIUM ORIndications:Chroni c obstructive pulmonary disease, unspecified COPD type (HCC),History of tobacco abuse,SOB (shortness of breath) Take by mouth. 0 Active budesonide-formotero l (SYMBICORT) 160-4.5 MCG/ACT inhaler Inhale 2 Puffs into the lungs 2 times daily. 3 Inhaler 3 06/12/2018 Active tiotropium (SPIRIVA) 18 MCG inhalation capsule Inhale 1 Cap into the lungs daily. Inhale the contents of one capsule through the Spiriva device every AM 90 Cap 3 06/22/2018 Active tamsulosin (FLOMAX) 0.4 MG 24 hr capsule Take 0.4 mg by mouth daily. Take 30 mins after same meal every day. 0 Active ALBUTEROL SULFATE (VENTOLIN HFA) 108 (90 BASE) MCG/ACT Aero Soln Inhale 2 Puffs into the lungs 4 times daily as needed for Wheezing or Shortness of Breath for up to 90 days. 3 Inhaler 3 11/13/2018 Active Active Problems Problem Noted Date Chronic obstructive pulmonary disease Inguinal hernia 05/08/2012 Elevated prostate specific antigen (PSA) 10/21/2011 Peripheral venous insufficiency 10/21/19 12 Social History Tobacco Use Types Packs/Day Years Used Date Smoking Tobacco: Former Cigarettes 1 Q uit: 2011 Smokeless Tobacco: Never Alcohol Use Standard Drinks/Week Comments Yes 0 (1 standard drink = 0.6 oz pur e alcohol) Sex Assigned at Date Recorded Not on file Last Filed Vital Signs Vital Sign Reading Time Taken Comments Blood Pressure 120/70 11/13/2018 1:06 PM EST Pulse 86 11/13/2018 1:06 PM EST Temperature - - Respiratory Rate 12 11/13/2018 1:06 PM EST Oxygen Saturation 98% 11/13/2018 1:06 PM EST Inhaled Oxygen Concentration - - Weight 77.9 kg (171 lb 12.8 oz) 11/13/2018 1:06 PM EST Height 177.8 cm (5' 10 ) 11/13/2018 1:06 PM EST Body Mass Index 24.65 11/13/2018 1:06 PM EST Plan of Treatment Health Maintenance Due Date Last Done Comments Covid-19 Vaccine (#1) 04/03/1951 HEPATITIS C SCREENING 1968 DTAP/TDAP/TD (1 - Tdap) 1969 CHOLESTEROL SCREENING 1970 COLON CANCER SCREENING 2000 SHINGLES VACCINE (1 of 2) 2000 PNEUMOCOCCAL VACCINE (1 - PCV) 2015 INFLUENZA (#1) 2024 Care Teams Academic Vice President Relationship Specialty Start Date End Date Community, Pcp PCP - General Internal Medicine 11/26/17
== END 2024-11-23 14:09 | disposition home or self-care (01) ==
LOC: HO.XRAY 14:08
PROVIDERS: PCP Internal Medicine; Visit Provider Nurse Practitioner Family
DX: R05.9 Cough, unspecified (principal)
CPT/HCPCS: 71046

== ENCOUNTER → 2024-11-23 14:14 | Outpatient (BNV) | payer OTHER, SELFPAY | PROVIDERS: PCP Internal Medicine; Visit Provider Radiology Diagnostic Radiology | DX: R91.8 Other nonspecific abnormal finding of lung field (principal) | CPT/HCPCS: 71046 ==

== ENCOUNTER 2024-12-02 13:06 | Outpatient (AMB) | payer OTHER, SELFPAY ==
--- NOTE | 2024-12-02 14:19 | A.OFFVIS_ITS ---
Intake Visit Reasons: 6MW Allergies bee venom protein (honey bee) Allergy (Verified 11/23/24 13:00) Unknown Bees Allergy (Mild, Uncoded 11/23/24 13:00) swelling [facility] Medical History (Updated 11/23/24 @ 13:11 by Rosanna Pyle NP) Personal history of nicotine dependence Pulmonary nodules Unspecified chronic bronchitis COPD (chronic obstructive pulmonary disease) Surgical History History of prostate surgery (~10/2023) Social History Patient Tobacco Use Status: Former Tobacco user Tobacco use type: Cigarette Years Smoked: 40 years Office Procedures 6 Minute Walk Time:: 14:00 SPO2 % at rest: 94 Pulse at rest: 100 SPO2 % during excercise: 92 Pulse during excercise: 112 SPO2 % after excercise: 94 Pulse after excercise: 110 Distance in yards walked: 150 Arturo Score: 4 Performance Observations:: Patient walked unassisted on level ground at a moderate pace. Patient was able to walk the entire six minutes and maintained O2 saturation of 92% or greater with pulse of 112 or less for the entire time. Denies shortness of breath. Supplemental oxygen was not needed. [address] - 6 Minute Walk Immunizations pneumoc 20-francisco conj-dip cr(PF) 0.5 mL IM syringe Performing Provider: Elvin Canchola MD Performing Location: [facility] Administered by: Mary Rene LPN on 12/02/24 14:24 Dose Route Admin Location Dispensed Lot Number Expiration Date [facility] Track Leader 0.5 mL IM Left Deltoid 0.5 mL [id number] 03/05/26 9074-0551-37 [employer]/Clip Interactive VIS Given Date VIS Provided VIS Publication Date 12/02/24 Single Vaccine 21 Eligibility Eligibility Date Funding Source Not [facility] Eligible 12/02/24 Private Assessment & Plan Assessment & Plan (1) COPD (chronic obstructive pulmonary disease): Code(s): J44.9 - Chronic obstructive pulmonary disease, unspecified Category: Medical Qualifiers: COPD type: chronic bronchitis Chronic bronchitis type: simple Qualified Code(s): J41.0 - Simple chronic bronchitis Plan 6MWT-no oxygen needed Prevnar 20 vaccine Orders: Orders AMB 6 minute walk Today J06.9 - Acute upper respiratory infection, unspecified, J41.0 - Simple chronic bronchitis Pneumococcal 20 Immunization Today Z23 - Encounter for immunization Coding Level of Care Code Est Pt Level 1 (93549) Diagnoses Simple chronic bronchitis J41.0 COPD type: chronic bronchitis Chronic bronchitis type: simple CPT Codes Coding ([id number])
[2024-12-02 14:24] VITALS: PULSE 100; O2SAT 94
--- OUTSIDE RECORDS SUMMARY | 2024-12-02 15:35 | XMS_ITS | Encounter Summary ---
Author Organization [facility] Address [address] [place] [address] Care Team Providers Care Log Deck Tender Name Role Phone Pcp, No Primary Care Provider Unavailabl e Encounter Details Date Type Department Care Team (Late st Contact Info) Description 01/18/2016 Scanned Document [address] [phone] Provider, Generic Social History Tobacco Use Types [...] on filedocumented in this encounter Care Teams Log Deck Tender Relationship Specialty Start Date End Date Pcp, No PCP - General General Medicine 08/18/15 documented as of this encounter
--- OUTSIDE RECORDS SUMMARY | 2024-12-02 15:35 | XMS_ITS | Encounter Summary ---
Author Organization [facility] Address [facility] [place] [address] Care Team Providers Care Process Specialist Name Role Phone Community, Pcp Primary Care Provider Unavailabl e Encounter Details Date Type Department Care Team Description 11/28/2017 Release of Information Medical Records [address] [place] [address] Abstract, Provider Social History Tobacco Use Types [...] on filedocumented in this encounter Care Teams Process Specialist Relationship Specialty Start Date End Date Community, Pcp PCP - General Internal Medicine 11/26/17 documented as of this encounter
--- OUTSIDE RECORDS SUMMARY | 2024-12-02 15:35 | XMS_ITS | Clinical Summary ---
Author Organization [facility] Address [address] [facility] [address] [place] [address] Phone Care Team Providers Care Emerging Solutions Executive Name Role Phone Km Scott MD Primary [...] patient's age to complete this topic Insurance [facility] Care Teams Emerging Solutions Executive Relationship Specialty Start Date End Date Km Scott MD [address] [place] [address] PCP - General 10/16/20
--- OUTSIDE RECORDS SUMMARY | 2024-12-02 15:35 | XMS_ITS | Encounter Summary ---
Author Organization [facility] Address [address] [place] [address] Care Team Providers Care Manufacturing Recruiter Name Role Phone Community, Pcp Primary Care Provider Unavailabl e Reason for Visit * Reason Onset Date Comments Testing 12/05/2017 Patient is sched uled at [facility] for his PFT & 6 Min Walk on Dec 02, 2017 @ 8:00 a.m. Encounter Details Date Type Department Care Team Description 12/05/2017 Telephone Pulmonology - [address] [place] [phone] Trisha Franz NP Testing (Patient is scheduled at [facility] for his PFT & 6 Min Walk on Dec 02, 2017 @ 8:00 a.m.) Social History Tobacco Use Types Packs/Day Years [...] on filedocumented in this encounter Care Teams Manufacturing Recruiter Relationship Specialty Start Date End Date Community, Pcp PCP - General Internal Medicine 11/26/17 documented as of this encounter
--- OUTSIDE RECORDS SUMMARY | 2024-12-02 15:35 | XMS_ITS | Clinical Summary ---
Author Organization [facility] Address [address] [place] [address] Care Team Providers Care Yard Coupler Name Role Phone Community, Pcp Primary Care [...] PCV) 2015 INFLUENZA (#1) 2024 Care Teams Yard Coupler Relationship Specialty Start Date End Date Community, Pcp PCP - General Internal Medicine 11/26/17
--- OUTSIDE RECORDS SUMMARY | 2024-12-02 15:35 | XMS_ITS | Clinical Summary ---
Author Organization [facility] Address [address] [place] [address] Care Team Providers Care Tank Car Reconditioner Name Role Phone Pcp, No Primary Care [...] age to complete this topic Care Teams Tank Car Reconditioner Relationship Specialty Start Date End Date Pcp, No PCP - General General Medicine 08/18/15
--- OUTSIDE RECORDS SUMMARY | 2024-12-02 15:35 | XMS_ITS | Encounter Summary ---
Author Organization [facility] Address [address] [place] [address] Care Team Providers Care Bathing Suit Maker Name Role Phone Unavailable Primary Care Provider Unavailabl e Encounter Details Date Type Department Care Team (Late st Contact Info) Description 08/18/2024 Lab Requisition [facility] - Main Lab [address] [place] [phone] Orly Renee NP [address] [facility] [address] [place] [address] Other abnormal findings on microbiological examination of [...] Staphylococcus epidermidis(A) MAHSA 08/20/2024 7:[address] [facility] Comment: Beta-lactamase positive Edited result: Previously [...] MAHSA <=0.5 ug/ml: Susceptible us Orly Renee WINDOWS SERVER ADMINISTRATOR LAB MICROBIOLOGY - GENERA L ORDERABLES Final Result [facility] ([facility]) [facility] [address] [place] [address], documented in this encounter Visit Diagnoses Diagnosis Other abnormal findings on microbiological examination of urine documented in this encounter
--- OUTSIDE RECORDS SUMMARY | 2024-12-02 15:35 | XMS_ITS | Encounter Summary ---
Author Organization [facility] Address [address] [place] [address] Care Team Providers Care Director Traffic And Planning Name Role Phone Community, Pcp Primary Care Provider Unavailabl e Reason for Visit * Reason Onset Date Comments refill request 06/16/2018 Encounter Details Date Type Department Care Team Description 06/16/2018 Refill Pulmonology - [place] [address] [facility] [address] [place] [address] Elvin Canchola MD refill request [...] Payor: MONIQUE / Plan: POS $0 [id number] / Product Type: POS [id number] documented in this encounter Plan of Treatment Not on file documented as of this encounter Visit Diagnoses Not on filedocumented in this encounter Care Teams Director Traffic And Planning Relationship Specialty Start Date End Date Community, Pcp PCP - General Internal Medicine 11/26/17 documented as of this encounter
--- OUTSIDE RECORDS SUMMARY | 2024-12-02 15:35 | XMS_ITS | Clinical Summary ---
Author Organization [facility] [address] [place] [address] Address [address] [place] [address] Phone Care Team Providers Care Reimbursement Counselor Name Role Phone Unavailable Primary Care Provider [...] patient's age to complete this topic Insurance [facility] JOSE [place]ARDING [id number]
--- OUTSIDE RECORDS SUMMARY | 2024-12-02 15:35 | XMS_ITS | Encounter Summary ---
Author Organization [facility] Address [facility] [place] [address] Care Team Providers Care Post Anesthesia Room Nurse Name Role Phone Community, Pcp Primary Care Provider Unavailabl e Encounter Details Date Type Department Care Team Description 05/24/2019 Release of Information Medical Records [address] [place] [address] Abstract, Provider Social History Tobacco Use Types [...] on filedocumented in this encounter Care Teams Post Anesthesia Room Nurse Relationship Specialty Start Date End Date Community, Pcp PCP - General Internal Medicine 11/26/17 documented as of this encounter
--- OUTSIDE RECORDS SUMMARY | 2024-12-02 15:35 | XMS_ITS | Encounter Summary ---
Author Organization [facility] Address [facility] [place] [address] Care Team Providers Care Marine Cargo Surveyor Name Role Phone Community, Pcp Primary Care Provider Unavailabl e Encounter Details Date Type Department Care Team Description 12/08/2017 Transfer Records Medical Records [address] [place] [id number] Abstract, Provider Social History Tobacco Use Types [...] on filedocumented in this encounter Care Teams Marine Cargo Surveyor Relationship Specialty Start Date End Date Community, Pcp PCP - General Internal Medicine 11/26/17 documented as of this encounter
--- OUTSIDE RECORDS SUMMARY | 2024-12-02 15:36 | XMS_ITS | Clinical Summary ---
Author Organization [facility] Address [address] [place] [address] Care Team Providers Care Teletypewriter Operator Name Role Phone Unavailable Primary Care Provider [...]
== END 2024-12-02 14:43 | disposition home or self-care (01) ==
PROVIDERS: PCP Internal Medicine; Visit Provider Hospitalist
DX: Z23 Encounter for immunization (principal); J41.0 Simple chronic bronchitis
CPT/HCPCS: 94618

== ENCOUNTER → 2024-12-02 13:06 | Outpatient (BNVA) | payer OTHER, SELFPAY | PROVIDERS: PCP Internal Medicine; Visit Provider Hospitalist | DX: J41.0 Simple chronic bronchitis (principal); Z23 Encounter for immunization | CPT/HCPCS: 90471; 90677; 94618; 99211 ==

== ENCOUNTER 2024-12-09 09:19 | Outpatient (AMB) | payer OTHER, SELFPAY ==
--- NOTE | 2024-12-09 09:23 | HO.NEPHOV_ITS ---
Vital Signs 12/09/24 09:24 Height 5 ft 10 in Weight 176 lb 8 oz BMI 25.3 BP 140/70 H Blood Pressure Location Lt brachial Position Sitting Pulse 109 H Pulse Source Pulse Oximeter Pulse Oximetry (%) 93 Oxygen Delivery Method Room Air Intake Visit Reasons: Mar follow up-Conf Protective Signal Repairer Helper Required: No Accompanied by: Self / Same As Patient Allergies bee venom protein (honey bee) Allergy (Verified 12/09/24 09:24) Unknown Bees Allergy (Mild, Uncoded 11/23/24 13:00) swelling HPI Comments Details: Mo was seen in follow-up for his hypertension. He has been getting treated for pneumonia. He does not have any headache, visual disturbances, chest pain, shortness of breath, paroxysmal nocturnal dyspnea, orthopnea, pedal edema, fever, urinary symptoms. He has no history of coronary artery disease, congestive heart failure, carotid stenosis, CVA, peripheral arterial disease. He does not take excessive sodium in the diet. He had prostatic symptoms and recently underwent surgery. He catheterizes couple times a day. His BP control is better. [facility] Medical History (Updated 11/23/24 @ 13:11 by Rosanna Pyle NP) Personal history of nicotine dependence Pulmonary nodules Unspecified chronic bronchitis COPD (chronic obstructive pulmonary disease) Surgical History History of prostate surgery (~10/2023) Social History Patient Tobacco Use Status: Former Tobacco user Tobacco use type: Cigarette Years Smoked: 40 years Review of Systems Const All systems reviewed & are unremarkable except as noted in HPI and below Physical Exam Vital Signs: Last Vital Signs Pulse 109 H 12/09/24 09:24 BP 160/80 H 12/09/24 09:24 Pulse Ox 93 12/09/24 09:24 Oxygen Delivery Method Room Air 12/09/24 09:24 BMI result Body Mass Index 25.3 Const General: comfortable and no acute distress Orientation/consciousness: patient oriented x3 HEENT Head: Yes normocephalic Mouth: Normal oral and palatal mucosa present Eyes EOM: EOMs intact bilaterally Neck Neck: Yes supple Resp Auscultation: clear to auscultation bilaterally Cardio Jugular venous distension: no JVD Rate: regular rate GI Palpation (GI): Soft to palpation Auscultation: normal bowel sounds General: Yes no CVA tenderness Back/Spine/Pelvis Back: no CVA tenderness Skin General skin exam: no rashes or lesions noted Neuro General: patient oriented x3 and moves all extremities Extrem General: Yes no pedal edema Results Reviewed Nephrology Results: No Data to Display Assessment & Plan Assessment & Plan (1) Hypertension: Code(s): I10 - Essential (primary) hypertension Category: Medical Qualifiers: Hypertension type: primary hypertension Qualified Code(s): I10 - Essential (primary) hypertension Plan Mo has longstanding hypertension. His renal functions have been normal. He should continue losartan 100 mg daily to keep his blood pressure at goal . I started him on Amlodipine 2.5 mg in addition to his losartan. He does not consume excess sodium in the diet. I encouraged him to monitor his blood pressure at home. He does not take any nonsteroidal anti-inflammatories and keep up with good hydration. He is going to be followed up in the office . His renal functions have been stable. I answered all his questions. Medications: New amlodipine 2.5 mg PO DAILY 90 tabs 3RF Changed From losartan 75 mg (1.5 x 50 mg) PO DAILY 90 days 135 tabs 3RF To losartan 100 mg (2 x 50 mg) PO DAILY 90 days 180 tabs 3RF Coding Level of Care Code Est Pt Level 4 (56858) Diagnoses Primary hypertension I10 Hypertension type: primary hypertension
[2024-12-09 09:24] VITALS: BP 140/70; PULSE 109; O2SAT 93; BMI 25.3
--- OUTSIDE RECORDS SUMMARY | 2024-12-09 10:24 | XMS_ITS | Encounter Summary ---
Author Organization [facility] Address [address] [place] [address] Care Team Providers Care Assistant Press Operator Offset Name Role Phone Pcp, No Primary Care Provider Unavailabl e Encounter Details Date Type Department Care Team (Late st Contact Info) Description 01/18/2016 Scanned Document [address] [phone] Provider, Generic Social History Tobacco Use Types [...] on filedocumented in this encounter Care Teams Assistant Press Operator Offset Relationship Specialty Start Date End Date Pcp, No PCP - General General Medicine 08/18/15 documented as of this encounter
--- OUTSIDE RECORDS SUMMARY | 2024-12-09 10:24 | XMS_ITS | Clinical Summary ---
Author Organization [facility] Address [address] [place] [address] Care Team Providers Care Master Ship Name Role Phone Pcp, No Primary Care [...] age to complete this topic Care Teams Master Ship Relationship Specialty Start Date End Date Pcp, No PCP - General General Medicine 08/18/15
--- OUTSIDE RECORDS SUMMARY | 2024-12-09 10:24 | XMS_ITS | Encounter Summary ---
Author Organization [facility] Address [address] [place] [address] Care Team Providers Care Residential Counselor Name Role Phone Unavailable Primary Care Provider Unavailabl e Encounter Details Date Type Department Care Team (Late st Contact Info) Description 08/18/2024 Lab Requisition [facility] - Main Lab [address] [place] [phone] Orly Renee NP [address] [facility] [address] [place] [address] Other abnormal findings on microbiological examination of [...] Staphylococcus epidermidis(A) MAHSA 08/20/2024 7:51 AM EST [facility] ([facility] Comment: Beta-lactamase positive Edited result: Previously [...] MAHSA <=0.5 ug/ml: Susceptible us Orly Renee PHYSICIAN SURGEON LAB MICROBIOLOGY - GENERA L ORDERABLES Final Result [facility] ([facility]) [facility] [address] [place] [address], documented in this encounter Visit Diagnoses Diagnosis Other abnormal findings on microbiological examination of urine documented in this encounter
--- OUTSIDE RECORDS SUMMARY | 2024-12-09 10:24 | XMS_ITS | Clinical Summary ---
Author Organization [facility] Address [address] [facility] [address] [place] [address] Phone Care Team Providers Care Welding Machine Operator Thermit Name Role Phone Km Scott MD Primary [...] patient's age to complete this topic Insurance [facility] Care Teams Welding Machine Operator Thermit Relationship Specialty Start Date End Date Km Scott MD [address] [place] [address] PCP - General 10/16/20
--- OUTSIDE RECORDS SUMMARY | 2024-12-09 10:24 | XMS_ITS | Clinical Summary ---
Author Organization [facility] Address [address] [place] [address] Care Team Providers Care Car Carder Name Role Phone Unavailable Primary Care Provider [...]
--- OUTSIDE RECORDS SUMMARY | 2024-12-09 10:24 | XMS_ITS | Clinical Summary ---
Author Organization [address] Address [address] [place] [address] Phone Care Team Providers Care Instructor Of Nursing Name Role Phone Unavailable Primary Care Provider [...] patient's age to complete this topic Insurance [facility] JO[place]ARDING [id number]
== END 2024-12-09 10:03 | disposition home or self-care (01) ==
PROVIDERS: PCP Internal Medicine; Visit Provider Internal Medicine Nephrology
DX: I10 Essential (primary) hypertension (principal)
CPT/HCPCS: 99214

== ENCOUNTER → 2024-12-09 09:19 | Outpatient (BNVA) | payer OTHER, SELFPAY | PROVIDERS: PCP Internal Medicine; Visit Provider Internal Medicine Nephrology ==

== ENCOUNTER 2024-12-15 08:52 | Outpatient (AMB) | payer OTHER, SELFPAY ==
--- NOTE | 2024-12-15 08:58 | A.OFFVIS_ITS ---
Vital Signs 12/15/24 08:59 Height 5 ft 10 in Weight 178 lb 9.191 oz BMI 25.6 BP 130/68 Blood Pressure Location Rt brachial Position Sitting Pulse 107 H Pulse Source Pulse Oximeter Pulse Oximetry (%) 93 Oxygen Delivery Method Room Air Intake Visit Reasons: COPD Allergies bee venom protein (honey bee) Allergy (Verified 12/15/24 09:01) Unknown Bees Allergy (Mild, Uncoded 12/15/24 09:01) swelling HPI Comments Details: The patient is a 74 y/o man with COPD. Overall doing well. Complains of cough, non productive, mild in nature. Using Symbicort with good effect. Denies any dyspnea. Went for 6 minute walk maintaining pox 96%. Had LDCT scan with RADS 2. Pulmonary nodules noted. ALso noted to have a large abdominal cyst. Has a referral with surgery at this time. 06/13/2023 the patient is here for pulmonary follow-up visit. Overall he is doing great. He continues with respiratory therapy. He is will be going surgery for his bladder issues. From a respiratory status he has no limitations. The patient continues to work full-time. The patient has not had any respiratory complaints. The patient has not required any prednisone or any hospitalizations. He will undergo spirometry today 6 minutes walk test. The patient is doing very well and is able to continue working without any limitations. 01/13/2024 the patient is here for a pulmonary follow-up visit. He has been complaining of a URI like symptoms. The patient has been having chest congestion and some sinus congestion. He has been sick now for about a week. Denies any fevers chills. His phlegm is congested in dark in color. Has not taking any prescription medications just xszq-ksw-pstutui Mucinex and Tylenol. He does feel a little bit tired. We did go for 6 minute walk test the patient was able to maintain a pulse ox above 88%. The lowest was 90%. Still lower than usual for him likely secondary to this viral illness. 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 Although, I do recommend that he can have a repeat 6 minute walk test in 6 months to make sure that he is recovered. He will require courses of antibiotics and short courses of Medrol to try and help him improve a little quicker. No imaging studies at this time unless the patient has any worsening symptoms. Will plan to have an x-ray done for his next visit in 6 months. 07/20/2024 patient is here for pulmonary follow-up visit. Overall the patient has been doing okay. Again he has a URI. He has been sick now for a couple weeks. Now bringing up some greenish yellowish phlegm. Moderate severity. Has been taking wejx-iqh-zoewwyu medications with only partial improvement. Will go inside the [facility]. At that doxycycline but he does like milk and he understands that it may cause him to have increased adverse effects. Therefore will go ahead and just send him on [facility]. The patient also is participating in the lung cancer screening program. 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 He has not had any issues. He is doing well overall. 12/15/2024 the patient is here for pulmonary follow-up visit. Overall he is feeling better. He was treated for pneumonia several months ago. He is back to his baseline. He does get shortness of breath when going up a flight of stairs but overall close to his baseline. We did go for 6 minute walk test. His oxygen was stable between 92-94% with activity. He did not have to start. Will have any conversation while walking. Wanting noted those heart rate was indeed elevated up to about 115 beats per minute with minimal activity. Once he rested the heart rate elevated in the low 100s. Therefore him get an EKG just to see if he has any underlying cardiac arrhythmias. In addition to that will have him repeat the x-ray to make sure will follow-up with the pneumonia. But the patient throughout pulmonary standpoint is doing well. He does have some congestion. He was placed on Bactrim for a urinary tract infection and that should also cover the lungs. [facility] Medical History (Updated 12/15/24 @ 23:19 by Elvin Canchola MD) Personal history of nicotine dependence Pulmonary nodules Unspecified chronic bronchitis COPD (chronic obstructive pulmonary disease) Surgical History History of prostate surgery (~10/2023) Social History Patient Tobacco Use Status: Former Tobacco user Tobacco use type: Cigarette Years Smoked: 40 years Review of Systems Const Denies night sweats ENT Denies change in voice, Denies lip swelling, Denies mouth pain, Reports nasal congestion, Reports nasal discharge, Reports post nasal drip and Denies tongue swelling Card Denies chest pain Resp Reports chest congestion GI Denies abdominal pain Musc Denies no additional complaints Neuro Denies Neuro-related abnormal movements Psych Denies no additional complaints Venkatesh/Lymph Denies easy bleeding and Denies lymphadenopathy Aller/Immun Denies lip swelling and Denies tongue swelling Physical Exam Vital Signs: Last Vital Signs Pulse 107 H 12/15/24 08:59 BP 130/68 12/15/24 08:59 Pulse Ox 93 12/15/24 08:59 Oxygen Delivery Method Room Air 12/15/24 08:59 BMI result Body Mass Index 25.6 Const General: alert Neck Neck: Yes normal visual inspection, Yes full ROM and Yes no lymphadenopathy Chest Chest palpation & inspection: normal inspection of the chest Resp Auscultation: diminished lung sounds Cardio Rate: regular rate Rhythm: regular rhythm Heart sounds: S1 normal heart sound present and S2 normal heart sound present GI Palpation (GI): Soft to palpation and nontender Auscultation: normal bowel sounds Skin General skin exam: rashes and/or lesions noted Assessment & Plan Assessment & Plan (1) COPD (chronic obstructive pulmonary disease): Code(s): J44.9 - Chronic obstructive pulmonary disease, unspecified Category: Medical Qualifiers: COPD type: chronic bronchitis Chronic bronchitis type: simple Qualified Code(s): J41.0 - Simple chronic bronchitis (2) Cough: Code(s): R05.9 - Cough, unspecified Category: Medical Qualifiers: Cough type: chronic Qualified Code(s): R05.3 - Chronic cough (3) Pulmonary nodules: Code(s): R91.8 - Other nonspecific abnormal finding of lung field Category: Medical Plan 6MWT-no oxygen needed EKG CXR continue Symbicort/Spiriva PAULINA as needed Taking bactrim for UTI F/U 6 months Orders: Orders ECG 12 lead EKG Today J44.9 - Chronic obstructive pulmonary disease, unspecified XR chest 2V Today R05.9 - Cough, unspecified Coding Level of Care Code Est Pt Level 4 (66838) Complex EM visit Add On G2211 Diagnoses Simple chronic bronchitis J41.0 COPD type: chronic bronchitis Chronic bronchitis type: simple Chronic cough R05.3 Cough type: chronic Pulmonary nodules R91.8 Time Spent (min) 17
[2024-12-15 08:59] VITALS: BP 130/68; PULSE 107; O2SAT 93; BMI 25.6
== END 2024-12-15 09:19 | disposition home or self-care (01) ==
PROVIDERS: PCP Internal Medicine; Visit Provider Hospitalist
DX: J41.0 Simple chronic bronchitis (principal); R91.8 Other nonspecific abnormal finding of lung field
CPT/HCPCS: 99214

== ENCOUNTER 2024-12-15 08:52 | Outpatient (REF) | payer OTHER, SELFPAY ==
--- NOTE | ~2024-12-15 | XR_ITS ---
CLINICAL HISTORY: R05.9 - Cough, unspecified 2 view chest x-ray Comparison: None Findings: Heart size is normal. Vague right middle lobe and bilateral basilar opacities. No pleural effusion or pneumothorax. No acute fracture. IMPRESSION: 1. Vague right middle lobe and bilateral basilar opacities may represent atelectasis versus pneumonia. This document has been electronically signed by: Glenny Morales MD on 12/15/2024 17:03:06
--- NOTE | 2024-12-15 09:45 | ECG_ITS ---
Test Reason : COPD Blood Pressure : */* mmHG Vent. Rate : 103 BPM Atrial Rate : 103 BPM P-R Int : 154 ms QRS Dur : 78 ms QT Int : 338 ms P-R-T Axes : 77 51 71 degrees QTcB Int : 442 ms Sinus tachycardia Otherwise normal ECG No previous ECGs available Referred By: Elvin Canchola Electronically Signed By: ROSIE CARVALHO
--- OUTSIDE RECORDS SUMMARY | 2024-12-15 10:13 | XMS_ITS | Clinical Summary ---
Author Organization [facility] Address [address] [place] [address] Care Team Providers Care Performance Improvement Specialist Name Role Phone Pcp, No Primary [...] age to complete this topic Care Teams Performance Improvement Specialist Relationship Specialty Start Date End Date Pcp, No PCP - General General Medicine 08/18/15
--- OUTSIDE RECORDS SUMMARY | 2024-12-15 10:13 | XMS_ITS | Encounter Summary ---
Author Organization [facility] Address [facility] [place] [address] Care Team Providers Care Rehabilitation Supervisor Name Role Phone Community, Pcp Primary Care Provider Unavailabl e Encounter Details Date Type Department Care Team Description 06/18/2018 Refill Orthopedics-[address] [address] Elvin Canchola MD Social History Tobacco Use Types Packs/Day Years [...] on filedocumented in this encounter Care Teams Rehabilitation Supervisor Relationship Specialty Start Date End Date Community, Pcp PCP - General Internal Medicine 11/26/17 documented as of this encounter
--- OUTSIDE RECORDS SUMMARY | 2024-12-15 10:13 | XMS_ITS | Encounter Summary ---
Author Organization [facility] Address [address] [place] [address] Care Team Providers Care Electrolytic Etcher Name Role Phone Community, Pcp Primary Care Provider Unavailabl e Reason for Visit * Reason Onset Date Comments medication problems 06/19/2018 Encounter Details Date Type Department Care Team Description 06/19/2018 Telephone Pulmonology - [address] [place] [address] Elvin Canchola MD medication problems Social History Tobacco Use Types Packs/Day Years Used Date Smoking Tobacco: Former Cigarettes 1 Q uit: 2012 Alcohol Use Standard Drinks/Week Comments Yes 0 (1 standard drink = 0.6 oz pur e alcohol) Sex Assigned at Date Recorded Not on file documented as of this encounter Miscellaneous Notes * Telephone Encounter - Elvin Canchola MD - 06/22/2018 5:00 PM EDT sent * Telephone Encounter - Perlita Judd - 06/22/2018 9:26 AM EDT Patient still waiting for this to be fixed. He needs a 90 day supply request to be sent to the pharmacy today. He needs the medication. He has 2 days left of medication. * Telephone Encounter - Rhiannon Viramontes - 06/19/2018 8:46 AM EDT Patient stating that spiriva was capsules; patient is indicating that it is the spiriva handi haler18 mcg ; Needs a 90 day supply Please review documented in this encounter Plan of Treatment Not on file documented as of this encounter Visit Diagnoses Not on filedocumented in this encounter Care Teams Electrolytic Etcher Relationship Specialty Start Date End Date Community, Pcp PCP - General Internal Medicine 11/26/17 documented as of this encounter
--- OUTSIDE RECORDS SUMMARY | 2024-12-15 10:13 | XMS_ITS | Encounter Summary ---
Author Organization [facility] Address [facility] [place] [address] Care Team Providers Care Cutter Machine Tender Name Role Phone Community, Pcp Primary Care Provider Unavailabl e Encounter Details Date Type Department Care Team Description 05/24/2019 Release of Information Medical Records [address] [place] [id number] Abstract, Provider Social History Tobacco Use Types [...] on filedocumented in this encounter Care Teams Cutter Machine Tender Relationship Specialty Start Date End Date Community, Pcp PCP - General Internal Medicine 11/26/17 documented as of this encounter
--- OUTSIDE RECORDS SUMMARY | 2024-12-15 10:13 | XMS_ITS | Clinical Summary ---
Author Organization [facility] Address [address] [place] [address] Care Team Providers Care Bicycle Service Technician Name Role Phone Community, Pcp Primary Care [...] PCV) 2015 INFLUENZA (#1) 2024 Care Teams Bicycle Service Technician Relationship Specialty Start Date End Date Community, Pcp PCP - General Internal Medicine 11/26/17
--- OUTSIDE RECORDS SUMMARY | 2024-12-15 10:13 | XMS_ITS | Clinical Summary ---
Author Organization [address] Address [address] [place] [phone] Phone Care Team Providers Care Developmental Behavioral Physician Name Role Phone Km Scott MD Primary Care Provider [phone] Encounters Date Type Department Care Team Description 12/15/2024 Lab Requisition [facility] - Main Lab [address] [facility] [employer] [place] [phone] Donte Guzmán MD Other abnormal findings in urine from Last 3 Months Surgical History Surgery Date Site/Laterality Comments HEMORRHOID [...] Influencers of Health Screening 09/08/2022 COVID-19 Vaccine ( - 2023-2 5 season) 2024 Influenza Vaccine [...] patient's age to complete this topic Insurance [facility] [place] [id number] Care Teams Developmental Behavioral Physician Relationship Specialty Start Date End Date Km Scott MD [address] [place] [address] PCP - General Internal Medicine 12/15/24
--- OUTSIDE RECORDS SUMMARY | 2024-12-15 10:13 | XMS_ITS | Encounter Summary ---
Author Organization [facility] Address [address] [place] [address] Care Team Providers Care Water Hauler Name Role Phone Community, Pcp Primary Care Provider Unavailabl e Encounter Details Date Type Department Care Team Description 11/28/2017 Telephone Pulmonology - [place] [address] [facility] [address] [place] [address] Trisha Franz NP Social History [...] on filedocumented in this encounter Care Teams Water Hauler Relationship Specialty Start Date End Date Community, Pcp PCP - General Internal Medicine 11/26/17 documented as of this encounter
--- OUTSIDE RECORDS SUMMARY | 2024-12-15 10:13 | XMS_ITS | Encounter Summary ---
Author Organization [facility] Address [facility] [place] [address] Care Team Providers Care Data Collection Associate Name Role Phone Community, Pcp Primary Care Provider Unavailabl e Encounter Details Date Type Department Care Team Description 12/08/2017 Transfer Records Medical Records [address] [place] [id number] Abstract, Provider Social History Tobacco Use Types [...] on filedocumented in this encounter Care Teams Data Collection Associate Relationship Specialty Start Date End Date Community, Pcp PCP - General Internal Medicine 11/26/17 documented as of this encounter
--- OUTSIDE RECORDS SUMMARY | 2024-12-15 10:13 | XMS_ITS | Encounter Summary ---
Author Organization [facility] Address [address] [place] [address] Care Team Providers Care Transfusion Nurse Name Role Phone Km Scott MD Primary Care Provider [phone] Encounter Details Date Type Department Care Team (Late st Contact Info) Description 08/18/2024 Lab Requisition [facility] - Main Lab [address] [facility] [place] [address] Orly Renee NP [address] [facility] [address] [place] [address] Other abnormal findings on microbiological examination of [...] Staphylococcus epidermidis(A) MAHSA 08/20/2024 7:51 AM EST [facility] Comment: Beta-lactamase positive Edited result: Previously [...] MAHSA <=0.5 ug/ml: Susceptible us Orly Renee MECHANICAL TECHNICAL SERVICE SPECIALIST LAB MICROBIOLOGY - GENERA L ORDERABLES Final Result [facility] [address] [place] [address], documented in this encounter Visit Diagnoses Diagnosis Other abnormal findings on microbiological examination of urine documented in this encounter Care Teams Transfusion Nurse Relationship Specialty Start Date End Date Km Scott MD [address] [place] [id number] PCP - General Internal Medicine 12/15/24 documented as of this encounter
--- OUTSIDE RECORDS SUMMARY | 2024-12-15 10:13 | XMS_ITS | Encounter Summary ---
Author Organization [facility] Address [address] [place] [address] Care Team Providers Care Precision Instrument And Tool Maker Name Role Phone Km Scott MD Primary Care Provider Encounter Details Date Type Department Care Team (Late st Contact Info) Description 12/15/2024 Lab Requisition [facility] - Main Lab [address] [facility] [place] [address] Donte Guzmán MD [address] [address] Other abnormal findings in urine Social History Tobacco Use Types Packs/Day [...] as of this encounter Plan of Treatment Pending Results Name Type Priority Associated Diagnoses Date /Time Bacterial identification and susceptibility, aerobic Microbiology Routine Other abnormal findings in urine 12/14/2024 12:00 AM EDT documented as of this encounter Visit Diagnoses Diagnosis Other abnormal findings in urine documented in this encounter Care Teams Precision Instrument And Tool Maker Relationship Specialty Start Date End Date Km Scott MD [address] [place] [id number] PCP - General Internal Medicine 12/15/24 documented as of this encounter
--- OUTSIDE RECORDS SUMMARY | 2024-12-15 10:14 | XMS_ITS | Clinical Summary ---
Author Organization [facility] Address [address] [place] [address] Care Team Providers Care Design Assembler Name Role Phone Unavailable Primary Care Provider [...]
--- OUTSIDE RECORDS SUMMARY | 2024-12-15 10:14 | XMS_ITS | Clinical Summary ---
Author Organization [facility] Address [address] [facility] [address] [place] [address] Phone Care Team Providers Care Staying Machine Operator Name Role Phone Km Scott MD Primary [...] this topic Insurance [facility] Care Teams Staying Machine Operator Relationship Specialty Start Date End Date Km Scott MD [address] [place] [address] PCP - General 10/16/20
--- OUTSIDE RECORDS SUMMARY | 2024-12-15 10:14 | XMS_ITS | Encounter Summary ---
Author Organization [facility] Address [address] [place] [address] Care Team Providers Care Physical Instructor Name Role Phone Pcp, No Primary Care Provider Unavailabl e Encounter Details Date Type Department Care Team (Late st Contact Info) Description 01/18/2016 Scanned Document [address] [phone] Provider, Generic Social History Tobacco Use Types [...] on filedocumented in this encounter Care Teams Physical Instructor Relationship Specialty Start Date End Date Pcp, No PCP - General General Medicine 08/18/15 documented as of this encounter
[2024-12-15 11:18] LABS: Anion Gap 13 (12-20); Blood Urea Nitrogen 16 mg/dL (9-16); Carbon Dioxide 23 mmol/L (22-29); Chloride 106 mmol/L (96-108); Estimated Glomerular Filt Rate > 60; Potassium 4.1 mmol/L (3.3-5.1); Sodium 138 mmol/L (135-145)
== END 2024-12-15 08:53 | disposition home or self-care (01) ==
LOC: HO.XRAY 08:52
PROVIDERS: Internal Medicine Nephrology; PCP Internal Medicine; Visit Provider Hospitalist
DX: J44.9 Chronic obstructive pulmonary disease, unspecified (principal); I10 Essential (primary) hypertension; R05.9 Cough, unspecified
CPT/HCPCS: 36415; 71046; 80051; 82565; 84520; 93005

== ENCOUNTER → 2024-12-15 09:29 | Outpatient (BNV) | payer OTHER, SELFPAY | PROVIDERS: PCP Internal Medicine; Visit Provider Specialist | DX: R05.9 Cough, unspecified (principal) | CPT/HCPCS: 71046 ==

== ENCOUNTER → 2024-12-15 09:45 | Outpatient (BNV) | payer OTHER, SELFPAY | PROVIDERS: PCP Internal Medicine; Visit Provider Internal Medicine | DX: R00.0 Tachycardia, unspecified (principal) | CPT/HCPCS: 93010 ==

== ENCOUNTER 2025-06-09 09:17 | Outpatient (AMB) | payer OTHER, SELFPAY ==
--- OUTSIDE RECORDS SUMMARY | 2025-01-18 10:47 | XMS_ITS ---
Author Organization [facility] Address [address] [place] [id number] Care Team Providers Care Action Installer Name Role Phone KYLE BUENO Primary Care Provider [phone] REASON FOR VISIT (3)[employer] Forms Encounters Encounter Location Date Provider Diagnosis [facility] [address] [place] [phone] 01/18/2025 KYLE BUENO PLAN OF TREATMENT Next Appt Details Provider Name:KYLE BURRELL, 11/17/2025 01:45:00 PM, [address] [place], [address],
--- OUTSIDE RECORDS SUMMARY | 2025-01-26 05:19 | XMS_ITS ---
Author Organization [facility] Address [address] [place] [phone] Care Team Providers Care Personal Insurance Advisor Name Role Phone KYLE BUENO Primary Care Provider [phone] REASON FOR VISIT Hydrocortisone cream MEDICATIONS Medication SIG (Take, Route, Fr equency, Duration) Notes Start Date End Date Status Hydrocortisone 2.5 % 1 application Exter julisa Once a day for 14 days 01/26/2025 Active Encounters Encounter Location Date Provider Diagnosis [address] [phone] 01/26/2025 KYLE BUENO PLAN OF TREATMENT Medication Medication Name Sig Start Date Stop Date Notes Hydrocortisone 2.5 % 1 application Exter julisa Once a day for 14 days 01/26/2025 Next Appt Details Provider Name:KYLE BURRELL, 11/17/2025 01:45:00 PM, [address] [place], [phone],
--- OUTSIDE RECORDS SUMMARY | 2025-05-05 06:00 | XMS_ITS ---
Author Organization [facility] Address [address] [place] [phone] Care Team Providers Care Sales Route Driver Helper Name Role Phone KYLE BUENO Primary Care Provider REASON FOR VISIT 42/ 6 months Encounters Encounter Location Date Provider Diagnosis [facility] [address] [place] [address] 05/05/2025 KYLE BUENO PLAN OF TREATMENT Next Appt Details Provider Name:KYLE BURRELL, 11/17/2025 01:45:00 PM, [address] [place], [phone],
--- OUTSIDE RECORDS SUMMARY | 2025-05-10 07:40 | XMS_ITS ---
Author Organization [facility] Address [address] [place] [phone] Care Team Providers Care Office Associate Name Role Phone KYLE BUENO Primary Care Provider JUSTYNA JOSE Unavailable [phone] REASON FOR VISIT 6 month f/u MEDICATIONS Medication SIG (Take, Route, Frequency, Duration) Notes Start Date End Date Status Metoprolol Succinate ER 25 MG 1/2 tablet each evening Orally Once a day for 90 days 01/10/2025 Active Multivitamin - 1 cap(s) orally once a day Active Hydrocortisone 2.5 % 1 application Exter julisa Once a day for 14 days 01/26/2025 Active Latanoprost 0.005 % 1 drop into affected eye in the evening Ophthalmic Once a day Active Losartan Potassium 50 MG 1 tablet Orally twice a day 01/15/2024 Active Albuterol Sulfate HFA 108 (90 Base) MCG/ACT 1 puff as needed Inhalation every 4 hrs Active Spiriva HandiHaler 18 MCG 1 ea inhaled e very other day Active Symbicort 160-4.5 MCG/ACT 2 puff(s) inha led 2 times a day 11/24/2015 Active amLODIPine Besylate 2.5 MG 1 tablet Oral ly Once a day Active SOCIAL HISTORY Tobacco Use: Social History Observation Description Date Details (start date - stop date) Former Smoker NA - NA Sex Assigned At : Social History Observation Description Sex Assigned At Unknown Smoking Question Answer Notes Are you a: former smoker How long has it been since you last smoked? > 10 years PROBLEMS Problem Type ICD Code Onset Dates Problem Status W/U Status Risk SNOMED Code Notes Problem White coat syndrome with hypertension (I10) Active confirmed [id number] VITAL SIGNS Height 70 in 05/10/2025 Weight 181.2 lbs 05/10/2025 Blood pressure systolic 144 mm Hg 05/10/20 25 Blood pressure diastolic 86 mm Hg 025 BMI 26.00 kg/m2 05/10/2025 Encounters Encounter Location Date Provider Diagnosis [facility] [address] [place] [address] 05/10/2025 JUSTYNA JOSE White coat syndrome with hypertension I10 and COPD (chronic obstructive pulmonary disease) J44.9 ASSESSMENTS Encounter Date Diagnosis Assessment Notes Treatment Notes Treatment Clinical Notes Section Notes 05/10/2025 White coat syndrome with hypertension (ICD-10 - I10) Good blood pressures at home. Lab work ordered. Continue amlodipine 2.5 mg daily, losartan 50 mg twice a day and metoprolol ER 25 mg half tablet in the evening. Discussed diet and exercise. Follow-up with Dr. Bueno in 6 months. Return sooner as needed. 05/10/2025 COPD (chronic obstructive pulmonary disease) (ICD-10 - J44.9) Follow-up with Dr. Canchola and pulmonology as scheduled. Currently up-to-date. Continue Spiriva 18 mcg 1 inhalation every other day, Symbicort 160/4.5 mcg 2 puffs twice a day and albuterol rescue inhaler as needed. No recent exacerbations and currently stable. Follow-up with Dr. Bueno in 6 months. PLAN OF TREATMENT Treatment Notes Assessment Notes White coat syndrome with hypertension Go od blood pressures at home. Lab work ordered. Continue amlodipine 2.5 mg daily, losartan 50 mg twice a day and metoprolol ER 25 mg half tablet in the evening. Discussed diet and exercise. Follow-up with Dr. Bueno in 6 months. Return sooner as needed. COPD (chronic obstructive pu lmonary disease) Follow-up with Dr. Canchola and pulmonology as scheduled. Currently up-to-date. Continue Spiriva 18 mcg 1 inhalation every other day, Symbicort 160/4.5 mcg 2 puffs twice a day and albuterol rescue inhaler as needed. No recent exacerbations and currently stable. Follow-up with Dr. Bueno in 6 months. Next Appt Details Follow Up: Labs ordered. Fol low-up with Dr. Bueno in 6 months for physical and recheck on blood pressure, COPD and BPH. Continue current medications as prescribed. Follow-up with specialist as scheduled. Return here sooner as needed., Reason: Provider Name:KYLE BURRELL, 11/17/2025 01:45:00 PM, [address] [place], [phone], Progress Notes * Examination Category Sub-Category Detail Notes Category Not es General Examination HEENT: NC/AT, EOMI,PERRL Neck: supple, no lymphaden opathy, no thyromegaly, no carotid bruit, JVP flat Heart: RRR, no murmurs, cli cks or rubs, normal S1S2 Lungs: clear to auscultatio n Abdomen: soft, non tender/non distended Extremities: normal ROM, no clubb ing , cyanosis, or edema General Appearance no apparent distress , pleasant Skin: normal, no rash Neuro alert and oriented x 3, CN 2-12 intact, motor 5/5 bilaterally proximally and distally in all 4 extremities, no focal abnormality, gait normal History and Physical Notes * HPI (History of Present Illness) Category Sub-Category Detail Notes Category Not es General Patient of Dr. Bueno seen today for 6-month follow-up on blood pressure, COPD/emphysema. Patient also with history of BPH for which he sees Dr. Mercado. He sees Dr. Canchola for his COPD and currently up-to-date with both of them. For his blood pressure he is currently on metoprolol ER 25 mg half a tablet in the evening, losartan 50 mg 1 tablet twice a day and amlodipine 2.5 mg once a day. Blood pressure today is elevated when checked by ROSAURA and by myself. Patient notes she has a history of whitecoat issues and he is checking his blood pressures at home. He did log them and brings in the log and blood pressures running in the 120s over 60s to 70s. Patient denies any issues with headaches, chest pain, shortness of breath, weakness, dizziness, numbness, tingling. He is currently on Spiriva 18 mcg 1 inhalation every other day, Symbicort 160/4.5 mcg 2 puffs twice a day and albuterol rescue inhaler 1 puff as needed every 4 hours. No recent exacerbations.
--- OUTSIDE RECORDS SUMMARY | 2025-05-11 13:17 | XMS_ITS ---
Author Organization [facility] Address [address] [place] [phone] Care Team Providers Care Dentist Private Practice Name Role Phone KYLE BUENO Primary Care Provider [phone] REASON FOR VISIT lipids Encounters Encounter Location Date Provider Diagnosis [facility] [address] [place] [phone] 05/11/2025 KYLE BUENO PLAN OF TREATMENT Next Appt Details Provider Name:KYLE BURRELL, 11/17/2025 01:45:00 PM, [address] [place], [phone],
--- NOTE | 2025-06-09 09:35 | HO.NEPHOV_ITS ---
Vital Signs 06/09/25 09:37 Height 5 ft 10 in Weight 181 lb 6 oz BMI 26.0 BP 124/80 Blood Pressure Location Lt brachial Position Sitting Pulse 70 Pulse Source Pulse Oximeter Pulse Oximetry (%) 94 Oxygen Delivery Method Room Air Intake Visit Reasons: 6 mnts f/u-Conf Land Classifier Required: No Accompanied by: Self / Same As Patient Allergies bee venom protein (honey bee) Allergy (Verified 06/09/25 09:37) Unknown Bees Allergy (Mild, Uncoded 12/15/24 09:01) swelling HPI Comments Details: Mo was seen in follow-up for his hypertension. He does not have any headache, visual disturbances, chest pain, shortness of breath, paroxysmal nocturnal dyspnea, orthopnea, pedal edema, fever, urinary symptoms. He has no history of coronary artery disease, congestive heart failure, carotid stenosis, CVA, peripheral arterial disease. He does not take excessive sodium in the t. He had prostatic symptoms and recently underwent surgery. He catheterizes couple times a day. His BP control is good at home [facility] Medical History (Updated 12/15/24 @ 23:19 by Elvin Canchola MD) Personal history of nicotine dependence Pulmonary nodules Unspecified chronic bronchitis COPD (chronic obstructive pulmonary disease) Surgical History History of prostate surgery (~10/2023) Social History Patient Tobacco Use Status: Former Tobacco user Tobacco use type: Cigarette Years Smoked: 40 years Review of Systems Const All systems reviewed & are unremarkable except as noted in HPI and below Physical Exam Const General: comfortable and no acute distress Orientation/consciousness: patient oriented x3 HEENT Head: Yes normocephalic Mouth: Normal oral and palatal mucosa present Eyes EOM: EOMs intact bilaterally Neck Neck: Yes supple Resp Auscultation: clear to auscultation bilaterally Cardio Jugular venous distension: no JVD Rate: regular rate GI Palpation (GI): Soft to palpation Auscultation: normal bowel sounds General: Yes no CVA tenderness Back/Spine/Pelvis Back: no CVA tenderness Skin General skin exam: no rashes or lesions noted Neuro General: patient oriented x3 and moves all extremities Extrem General: Yes no pedal edema Results Reviewed Nephrology Results: Sodium, (135-145) 138 mmol/L 12/15/24 Potassium, (3.3-5.1) 4.1 mmol/L 12/15/24 Chloride, (96-108) 106 mmol/L 12/15/24 Carbon Dioxide, (22-29) 23 mmol/L 12/15/24 BUN, (9-16) 16 mg/dL 12/15/24 Creatinine, (0.5-1.4) 0.97 mg/dL 12/15/24 Assessment & Plan Assessment & Plan (1) Hypertension: Code(s): I10 - Essential (primary) hypertension Category: Medical Qualifiers: Hypertension type: primary hypertension Qualified Code(s): I10 - Essential (primary) hypertension Plan Mo has longstanding hypertension. His renal functions have been normal. He should continue losartan 100 mg daily to keep his blood pressure at goal . I started him on Amlodipine 2.5 mg in addition to his losartan. He does not consume excess sodium in the diet. I encouraged him to monitor his blood pressure at home. He does not take any nonsteroidal anti-inflammatories and keep up with good hydration. He is going to be followed up in the office . His renal functions have been stable. I answered all his questions. Orders: Orders Blood Urea Nitrogen 6 Months I10 - Essential (primary) hypertension Electrolytes 6 Months I10 - Essential (primary) hypertension Creatinine 6 Months I10 - Essential (primary) hypertension Coding Level of Care Code Est Pt Level 4 (85323) Diagnoses Primary hypertension I10 Hypertension type: primary hypertension
[2025-06-09 09:37] VITALS: BP 124/80; PULSE 70; O2SAT 94; BMI 26.0
--- OUTSIDE RECORDS SUMMARY | 2025-06-09 09:55 | XMS_ITS | Encounter Summary ---
Author Organization [facility] Address [address] [place] [id number] Phone Care Team Providers Care Limehouse Worker Name Role Phone Km Scott MD Primary Care Provider [phone] Encounter Details Date Type Department Care Team (Late st Contact Info) Description 10/29/2018 Procedure Pass [facility] [address] [place] [address] Social History Tobacco Use Types Packs/Day Years Used Date Smoking Tobacco: Never Assessed Sex and Gender Information Value Date Recorded Sex Assigned at Not on file Legal Sex Male 2:59 PM EST Gender Identity Not on file Sexual Orientation Not on file documented as of this encounter Plan of Treatment Not on file documented as of this encounter Visit Diagnoses Not on filedocumented in this encounter Care Teams Limehouse Worker Relationship Specialty Start Date End Date Km Scott MD [address] [place] [id number] PCP - General Internal Medicine 10/15/18 documented as of this encounter Additional Source Comments The information contained in this document represents components of the legal health record. It is not the complete legal health record.[facility]
--- OUTSIDE RECORDS SUMMARY | 2025-06-09 09:55 | XMS_ITS | Clinical Summary ---
Author Organization [facility] Address [address] [facility] [address] [place] [address] Phone Care Team Providers Care Fuse Coiler Name Role Phone Km Scott MD Primary Care Provider [phone] Allergies Active Allergy Reactions Criticality Noted Date [...] 08/01/2021 Peripheral venous insufficiency 10/21/2011 08/01/2021 Immunizations Immunization Administration Dates Next Due Pneumococcal Conjugate 13-Valent [...] Colorectal Cancer Screening: Sigmoidoscopy 1999 Pneumococcal Vaccine: 50+ Ye ars (2 of 2 - PPSV23, PCV20, or PCV21) 09/18/2015 07/24/2015 Influenza Vaccine (#1) 2025 Pneumococcal Vaccine: Peds ( 0 to 5 Years) and At-Risk Patients (6 to 49 Years) Discontinued 07/24/2015 Hepatitis B Vaccine Aged Out No longe r eligible based on patient's age to complete this topic Insurance [facility] Care Teams Fuse Coiler Relationship Specialty Start Date End Date Km Scott MD [address] [place] [address] PCP - General 10/16/20
--- OUTSIDE RECORDS SUMMARY | 2025-06-09 09:55 | XMS_ITS | Encounter Summary ---
Author Organization [facility] Address [address] [place] [address] Care Team Providers Care Agronomy Research Manager Name Role Phone Km Scott MD Primary Care Provider Encounter Details Date Type Department Care Team (Late st Contact Info) Description 08/18/2024 Lab Requisition [facility] - Main Lab [address] [facility] [place] [address] Orly Renee NP [address] [facility] [address] [place] [address] Other abnormal findings on microbiological examination of [...] Staphylococcus epidermidis(A) MAHSA 08/20/2024 7:51 AM EST [facility] ([facility] HOSP[facility] LAB Comment: Beta-lactamase positive Edited result: [...] MAHSA <=0.5 ug/ml: Susceptible us Orly Renee PHYSICAL EDUCATION PROFESSOR LAB MICROBIOLOGY - GENERA L ORDERABLES Final Result [facility] ([facility]) [facility] [address] [place] [address], documented in this encounter Visit Diagnoses Diagnosis Other abnormal findings on microbiological examination of urine documented in this encounter Care Teams Agronomy Research Manager Relationship Specialty Start Date End Date Km Scott MD [address] [place] [id number] PCP - General Internal Medicine 12/15/24 documented as of this encounter
--- OUTSIDE RECORDS SUMMARY | 2025-06-09 09:55 | XMS_ITS | Encounter Summary ---
Author Organization [facility] Address [address] [place] [address] Care Team Providers Care Human Service Coordinator Name Role Phone Km Scott MD Primary Care Provider Encounter Details Date Type Department Care Team (Late st Contact Info) Description 12/15/2024 Lab Requisition [facility] - Main Lab [address] [facility] [place] [address] Donte Guzmán MD [address] [place] [address] Other abnormal findings in urine Social History [...] Comments BACTERIAL IDENTIFICATION AND SUSCEPTIBILITY, AEROBIC Routine 12/14/2024 12:00 AM EDT Other abnormal findings in urine documented in this encounter Results * (ABNORMAL) Bacterial identification and susceptibility, aerobic (12/14/2024 12:00 AM EDT) Culture, Bacterial ID and Sensitivity Enterococcus faecalis(A) MAHSA 12/16/2024 7:53 AM EDT [facility] ([facility]) [facility] LAB Comment: Edited result: Previously reported as Gram Positive Cocci on 12/15/2024 at 1111 EDT. Other Urine specimen from urethra / Unknown 12/14/2024 12/15/2024 9:56 AM EDT Narrative Organism Antibiotic Method Susceptibility Enterococcus faecalis Benzylpenicillin MAHSA 4 ug/ml: Susceptible Enterococcus faecalis Ampicillin MAHSA <=2 ug/ml: Susceptible Enterococcus faecalis Ciprofloxacin MAHSA <=0.5 ug/ml: Susceptible Enterococcus faecalis Levofloxacin MAHSA 1 ug/ml: Susceptible Enterococcus faecalis Linezolid MAHSA 2 ug/ml: Susceptible Enterococcus faecalis Vancomycin MAHSA 1 ug/ml: Susceptible Enterococcus faecalis Tetracycline MAHSA >=16 ug/ml: Resistant Enterococcus faecalis Nitrofurantoin MAHSA <=16 ug/ml: Susceptible us Donte Guzmán MD LAB MICROBIOLOGY - [facility] AL ORDERABLES Final Result [facility] ([facility]) [facility] [address] [place] [address], documented in this encounter Visit Diagnoses Diagnosis Other abnormal findings in urine documented in this encounter Care Teams Human Service Coordinator Relationship Specialty Start Date End Date Km Scott MD [address] [place] [address] PCP - General Internal Medicine 12/15/24 documented as of this encounter
--- OUTSIDE RECORDS SUMMARY | 2025-06-09 09:55 | XMS_ITS | Clinical Summary ---
Author Organization [address] Address [address] [place] [phone] Phone Care Team Providers Care High School Music Instructor Name Role Phone Km Scott MD Primary Care Provider [phone] Surgical History Surgery Date Site/Laterality Comments HEMORRHOID SURGERY PROCEDURE: DESTRUCTION OF HEMORRHOIDS Medical History Medical History Date Comments Chronic obstructive pulmonar y disease (CMS/HCC V24, CMS/HCC V28) 07/21/2017 DX:Chronic obstructive pulm onary disease (HCC) Elevated prostate specific a ntigen [...] Vaccines (1 of 2) 2000 RSV Immunization Adult Patie nts (1 - Risk 60-74 years 1-dose series) 2010 Abdominal Aortic Aneurysm (A AA) Screen 09/08/2022 Cholesterol Screening (Lipid Panel) 09/08/2022 Colorectal Cancer Screening: Colonoscopy 09/08/2022 Falls Risk Assessment 09/08/2022 Hepatitis C Screening 09/08/2022 Social Influencers of Health Screening 09/08/2022 Depression Screening 10/06/2024 COVID-19 Vaccine ( - 2023-2 5 season) 2025 Influenza Vaccine (#1) 2025 HIB Vaccines Aged Out No longer eligi [...] age to complete this topic Meningococcal B Vaccine Aged Out No l onger eligible based on patient's age to complete this topic RSV Immunization Patients Un chelly 20 months Aged Out No longer eligible b ased on patient's age to complete this topic Varicella Vaccines Aged Out No longer eligible based on patient's age to complete this topic Insurance [facility] [place] [id number] Care Teams High School Music Instructor Relationship Specialty Start Date End Date Km Scott MD [address] [place] [phone] PCP - General Internal Medicine 12/15/24
--- OUTSIDE RECORDS SUMMARY | 2025-06-09 09:55 | XMS_ITS | Clinical Summary ---
Author Organization [facility] Address [address] [place] [address] Care Team Providers Care Special Education Preschool Teacher Name Role Phone Unavailable Primary Care Provider [...] (Shingrix) (1 of 2) 2000 COVID-19 Vaccine (1 - 2023-2 5 season) 2025 Influenza (#1) 2025 RSV (1 - 1-dose 75+ series) 2025 Abdominal Aorta Imaging Discontinued HPV Vaccine (No Doses Required) Completed Hep A Aged Out No longer eligi [...]
--- OUTSIDE RECORDS SUMMARY | 2025-06-09 09:55 | XMS_ITS | Clinical Summary ---
Author Organization [facility] Address [address] [place] [address] Care Team Providers Care Deicer Repairer Pneumatic Name Role Phone Pcp, No Primary Care Provider Unavailabl e Allergies No known active allergies Medications VENTOLIN HFA 108 (90 BASE) MCG/ACT inhaler 1 11/17/2015 Active SYMBICORT 160-4.5 MCG/ACT inhaler 11 11/24/2015 Act franklyn losartan (COZAAR) 25 MG tablet 3 10/20/2015 [...] at Not on file Legal Sex Male 3:07 PM EDT Gender Identity Not on file Sexual Orientation Not on file Plan of Treatment Health Maintenance Due Date Last Done Comments Advance Care Planning 1950 Hepatitis C Virus Screening 1950 DTaP/Tdap/Td Vaccines (1 - Tdap) 1969 Pneumococcal Vaccines 50+ (1 of 1 - PCV) 2000 Zoster (Shingles) Vaccine (1 of 2) 2000 COVID-19 Vaccine ( - 2023-2 5 season) 2025 RSV Vaccine 60 years and old er and Patients (1 - 1-dose 75+ series) 2025 Hepatitis B Vaccines Aged Out No long er eligible based on patient's age to complete this topic Care Teams Deicer Repairer Pneumatic Relationship Specialty Start Date End Date Pcp, No PCP - General General Medicine 08/18/15
--- OUTSIDE RECORDS SUMMARY | 2025-06-09 09:55 | XMS_ITS | Patient Health Record ---
Author Organization [facility] Address [address], [place] [id number] Care Team Providers Care Foxing Painter Name Role Phone KYLE BUENO Primary Care Provider ERICKSON WALKER Unavailable [phone] JUSTYNA JOSE Unavailable [phone] ALLERGIES No Known Allergies RESULTS Component Value Reference Range Notes Urine Culture, Routine-[id number] Reviewed date:12/02/2024 10:52:34 PM Interpretation: Performing Lab:[facility], [address] [facility], [address], [place], Phone - [phone], Director - Vinicio Notes/Report: Clinical Information:SRC: Clinical Information:SRC: Urine Culture, Routine Final report Result 1 No growth [id number] Reviewed date:12/31/2024 03:12:40 PM Interpretation: Performing Lab:[facility], [address] [facility], Phone - [phone], Director - Soniya Notes/Report: Glucose 108 70-99 mg/dL BUN 15 8-27 mg/dL Creatinine 0.80 0.76-1.27 mg/dL eGFR 93 >59 mL/min/1.73 BUN/Creatinine Ratio 19 10-24 Sodium 136 134-144 mmol/L Potassium 4.3 3.5-5.2 mmol/L Chloride 100 96-106 mmol/L Carbon Dioxide, Total 20 20-29 mmol/L Anion Gap 16.0 10.0-18.0 mmol/L Calcium 10.0 8.6-10.2 mg/dL Urinalysis, Complete w/ME-00 3772 Reviewed date:11/03/2024 07:11:06 AM Interpretation: Performing Lab:[facility], [address], [place], Phone - [phone], Director - Soniya Notes/Report: Specific Sanford 1.013 1.005-1.030 pH 6.5 5.0-7.5 Urine-Color Yellow Yellow Appearance Turbid Clear WBC Esterase 3+ Negative Protein 2+ Negative/Trace Glucose Negative Negative Ketones Negative Negative Occult Blood 2+ Negative Bilirubin Negative Negative Urobilinogen,Semi-Qn 0.2 0.2-1.0 mg/dL Nitrite, Urine Positive Negative Microscopic Examination See below: Micr oscopic was indicated and was performed. Microscopic Examination WBC >30 0 - 5 /hpf RBC 11-30 0 - 2 /hpf Epithelial Cells (non renal) 0-10 0 - 10 /hpf Epithelial Cells (renal) Casts None seen None seen /lpf Cast Type Crystals Crystal Type Mucus Threads Bacteria Many None seen/Few Yeast Trichomonas Comment Urine Culture, Routine-[id number] Reviewed date:11/11/2024 04:49:35 PM Interpretation: Performing Lab:[facility], [address], [address], [place], Phone - [phone], Director - Vinicio Notes/Report: Clinical Information:SRC: Clinical Information:SRC: Urine Culture, Routine Final report Result 1 Staphylococcus epidermidis Greater than 100,000 colony forming units per mL Based on susceptibility to oxacillin this isolate would be susceptible to: *Penicillinase-stable penicillins, such as: Cloxacillin, Dicloxacillin, Nafcillin *Beta-lactam combination agents, such as: Amoxicillin-clavulanic acid, Ampicillin-sulbactam, Piperacillin-tazobactam *Oral cephems, such as: Cefaclor, Cefdinir, Cefpodoxime, Cefprozil, Cefuroxime, Cephalexin, Loracarbef *Parenteral cephems, such as: Cefazolin, Cefepime, Cefotaxime, Cefotetan, Ceftaroline, Ceftizoxime, Ceftriaxone, Cefuroxime *Carbapenems, such as: Doripenem, Ertapenem, Imipenem, Meropenem Antimicrobial Susceptibility S = Susceptible; I = Intermediate; R = Resistant P = Positive; N = Negative MICS are expressed in micrograms per mL Antibiotic RSLT#1 RSLT#2 RSLT#3 RSLT#4 Ciprofloxacin S Gentamicin S Levofloxacin S Linezolid S Moxifloxacin S Nitrofurantoin S Oxacillin S Penicillin R Rifampin S Tetracycline S Trimethoprim/Sulfa R Vancomycin S Lipid Panel With LDL/HDL Rat [id number] Reviewed date:05/11/2025 05:18:26 PM Interpretation: Performing Lab:[facility], [address] [place] [address], Phone - [phone], Director - MDJodry Notes/Report: Cholesterol, Total 220 100-199 mg/dL Triglycerides 175 0-149 mg/dL HDL Cholesterol 56 >39 mg/dL VLDL Cholesterol Alfred 31 5-40 mg/dL LDL Chol Calc ([facility]) 133 0-99 mg/dL LDL Calc Comment: LDL/HDL Ratio 2.4 0.0-3.6 ratio LDL/HDL Ratio Men Women 1/2 Avg.Risk 1.0 1.5 Avg.Risk 3.6 3.2 2X Avg.Risk 6.2 5.0 3X Avg.Risk 8.0 6.1 CBC, Platelet, w/o Different ial-[id number] Reviewed date:11/03/2024 07:11:06 AM Interpretation: Performing Lab:[facility], [address] [place] [address], Phone - [phone], Director - Soniya Notes/Report: WBC 9.6 3.4-10.8 x10E3/uL RBC 5.02 4.14-5.80 x10E6/uL Hemoglobin 15.3 13.0-17.7 g/dL Hematocrit 45.8 37.5-51.0 % MCV 91 79-97 fL MCH 30.5 26.6-33.0 pg MCHC 33.4 31.5-35.7 g/dL RDW 12.1 11.6-15.4 % Platelets 243 150-450 x10E3/uL NRBC CBC With Differential/Platel et-[id number] Reviewed date:05/11/2025 05:18:26 PM Interpretation: Performing Lab:[facility], [address] [place] [address], Phone - [phone], Director - Kasandray Notes/Report: WBC 9.4 3.4-10.8 x10E3/uL RBC 4.97 4.14-5.80 x10E6/uL Hemoglobin 15.2 13.0-17.7 g/dL Hematocrit 46.2 37.5-51.0 % MCV 93 79-97 fL MCH 30.6 26.6-33.0 pg MCHC 32.9 31.5-35.7 g/dL RDW 12.9 11.6-15.4 % Platelets 316 150-450 x10E3/uL Neutrophils 76 Not Estab. % Lymphs 13 Not Estab. % Monocytes 7 Not Estab. % Eos 1 Not Estab. % Basos 1 Not Estab. % Immature Cells Neutrophils (Absolute) 7.2 1.4-7.0 x10E3/uL Lymphs (Absolute) 1.3 0.7-3.1 x10E3/uL Monocytes(Absolute) 0.7 0.1-0.9 x10E3/uL Eos (Absolute) 0.1 0.0-0.4 x10E3/uL Baso (Absolute) 0.1 0.0-0.2 x10E3/uL Immature Granulocytes 2 Not Estab. % Immature Grans (Abs) 0.2 0.0-0.1 x10E3/uL (An elevated percentage of Immature Granulocytes has not been found to be clinically significant as a sole clinical predictor of disease. Does NOT include bands or blast cells. associated physiological leukocytosis may also show increased immature granulocytes without clinical significance.) [facility] Hematology Comments: EKG Reviewed date:12/27/2024 01:14:48 PM Interpretation: Performing Lab: Notes/Report: ECGDiastolicBP ECGHr ECGPRInterval ECGPWaveAxis ECGQRSDuration ECGQrsWaveAxis ECGQTcInterval ECGQTInterval ECGSystolicBP ECGTWaveAxis RR_DiastolicBP RR_MaxRRInterval RR_MeanHR RR_MeanRRInterval RR_MinRRInterval RR_NumBeats RR_NumNormalBeats RR_SystolicBP CBC With Differential/Platel et-[id number] Reviewed date:12/31/2024 03:14:01 PM Interpretation: Performing Lab:[facility], [address], [place], Phone - [phone], Director - Soniya Notes/Report: WBC 9.1 3.4-10.8 x10E3/uL RBC 4.93 4.14-5.80 x10E6/uL Hemoglobin 14.7 13.0-17.7 g/dL Hematocrit 44.6 37.5-51.0 % MCV 91 79-97 fL MCH 29.8 26.6-33.0 pg MCHC 33.0 31.5-35.7 g/dL RDW 12.9 11.6-15.4 % Platelets 304 150-450 x10E3/uL Neutrophils 78 Not Estab. % Lymphs 11 Not Estab. % Monocytes 9 Not Estab. % Eos 1 Not Estab. % Basos 1 Not Estab. % Immature Cells Neutrophils (Absolute) 7.1 1.4-7.0 x10E3/uL Lymphs (Absolute) 1.0 0.7-3.1 x10E3/uL Monocytes(Absolute) 0.8 0.1-0.9 x10E3/uL Eos (Absolute) 0.1 0.0-0.4 x10E3/uL Baso (Absolute) 0.1 0.0-0.2 x10E3/uL Immature Granulocytes 0 Not Estab. % Immature Grans (Abs) 0.0 0.0-0.1 x10E3/uL NR Hematology Comments: Prostate-Specific Ag (PSA)-0 [id number] Reviewed date:11/03/2024 07:11:07 AM Interpretation: Performing Lab:[facility], [address] [place] [address], Phone - [phone], Director - Soniya Notes/Report: Prostate Specific Ag 7.0 0.0-4.0 ng/mL Angela ECLIA methodology. . According to the [place] [employer], Serum PSA should decrease and remain at undetectable levels after radical prostatectomy. The AUA defines biochemical recurrence as an initial PSA value 0.2 ng/mL or greater followed by a subsequent confirmatory PSA value 0.2 ng/mL or greater. Values obtained with different assay methods or kits cannot be used interchangeably. Results cannot be interpreted as absolute evidence of the presence or absence of malignant disease. Holter Monitor 24 hour Reviewed date:01/04/2025 02:26:18 PM Interpretation: Performing Lab: Notes/Report: [id number]+[id number] Reviewed date:11/03/2024 07:11:06 AM Interpretation: Performing Lab:[facility] [address] [place] [address], Phone - [phone], Director - Soniya Notes/Report: Glucose 99 70-99 mg/dL BUN 14 8-27 mg/dL Creatinine 0.97 0.76-1.27 mg/dL eGFR 82 >59 mL/min/1.73 BUN/Creatinine Ratio 14 10-24 Sodium 137 134-144 mmol/L Potassium 4.5 3.5-5.2 mmol/L Chloride 101 96-106 mmol/L Carbon Dioxide, Total 21 20-29 mmol/L Anion Gap 15.0 10.0-18.0 mmol/L Calcium 9.8 8.6-10.2 mg/dL Lipid Panel-[id number] Reviewed date:11/03/2024 07:11:06 AM Interpretation: Performing Lab:[facility], [address] [place] [address], Phone - [phone], Director - Soniya Notes/Report: Cholesterol, Total 203 100-199 mg/dL Triglycerides 137 0-149 mg/dL HDL Cholesterol 52 >39 mg/dL VLDL Cholesterol Alfred 24 5-40 mg/dL LDL Chol Calc ([facility]) 127 0-99 mg/dL LDL Calc Comment: TSH Rfx on Abnormal to Free [id number] Reviewed date:12/31/2024 03:12:24 PM Interpretation: Performing Lab:[facility], [address] [place] [address], Phone - [phone], Director - Soniya Notes/Report: TSH 1.730 0.450-4.500 uIU/mL HCV Antibody-[id number] Reviewed date:11/03/2024 04:21:33 PM Interpretation: Performing Lab:[facility], [address], [place], Phone - [phone], Director - [facility] Notes/Report: Hep C Virus Ab Non Reactive Non Reactive HCV antibody alone does not differentiate between previously resolved infection and active infection. Equivocal and Reactive HCV antibody results should be followed up with an HCV RNA test to support the diagnosis of active HCV infection. Comp. Metabolic Panel (14)-[id number] Reviewed date:05/11/2025 05:18:26 PM Interpretation: Performing Lab:[facility] [address] [place] [address], Phone - [phone], Director - Soniya Notes/Report: Glucose 98 70-99 mg/dL BUN 14 8-27 mg/dL Creatinine 0.79 0.76-1.27 mg/dL eGFR 93 >59 mL/min/1.73 BUN/Creatinine Ratio 18 10-24 Sodium 135 134-144 mmol/L Potassium 4.7 3.5-5.2 mmol/L Chloride 100 96-106 mmol/L Anion Gap 16.0 10.0-18.0 mmol/L Carbon Dioxide, Total 19 20-29 mmol/L Calcium 10.1 8.6-10.2 mg/dL Protein, Total 7.1 6.0-8.5 g/dL Albumin 4.7 3.8-4.8 g/dL Globulin, Total 2.4 1.5-4.5 g/dL Bilirubin, Total 0.3 0.0-1.2 mg/dL Alkaline Phosphatase 76 44-121 IU/L AST (SGOT) 22 0-40 IU/L ALT (SGPT) 25 0-44 IU/L REASON FOR REFERRAL No Information MEDICATIONS Medication SIG (Take, Route, Frequency, Duration) Notes Start Date End Date Status Metoprolol Succinate ER 25 MG 1/2 tablet each evening Orally Once a day for 90 days 01/10/2025 Active Multivitamin - 1 cap(s) orally once a day Active Hydrocortisone 2.5 % 1 application Exter julisa Once a day for 14 days 01/26/2025 Active Albuterol Sulfate HFA 108 (90 Base) MCG/ACT 1 puff as needed Inhalation every 4 hrs Active Latanoprost 0.005 % 1 drop into affected eye in the evening Ophthalmic Once a day Active Spiriva HandiHaler 18 MCG 1 ea inhaled e very other day Active Symbicort 160-4.5 MCG/ACT 2 puff(s) inha led 2 times a day 11/24/2015 Active Losartan Potassium 50 MG 1 tablet Orally twice a day 01/15/2024 Active amLODIPine Besylate 2.5 MG 1 tablet Oral ly Once a day Active IMMUNIZATIONS Vaccine Route Administration Date Status Comme nts Influenza IM Intramuscular 09/05/2011 Administered Influenza, Fluzone HD 65+ IM Intramuscular 07/25/2023 Admi nistered Pneumococcal (PPV23, adult) Unknown 06/29/2009 Administered SOCIAL HISTORY Tobacco Use: Social History Observation [...] W/U Status Risk SNOMED Code Notes Problem Tobacco Abuse (305.1) Active confirmed Tobacco abuse (1929716416) Problem CHRONIC BRONCHITIS NEC (491.8) Active confirmed Chronic bronchitis (57997908) Problem EMPHYSEMA NEC (492.8) Active confirmed Emphysema (16988337) Problem Other nonspecific abnormal finding of lung field (793.19) Active confirmed Lung field abnormal (398065373) CXR with small nodular opacity in the RUL. Will need to review previous films. If new will need a CT chest Problem COPD (chronic obstructive pulmonary disease) (J44.9) Active confirmed COPD - Chronic obstructive pulmonary disease (21220892) Problem Essential (primary) hypertension (I10) Active confirmed Essential hypertension (11355735) Problem Pulmonary nodule (R91.1) Active confirmed Pulmonary nod ule (361859292) Problem Tinnitus, left ear (H93.12) Active confirmed 4031550322811 Problem Leukocytosis, unspecified type (D72.829) Active confirmed 553830976 Problem White coat syndrome with hypertension (I10) Active confirmed 33964811 Problem Benign prostatic hyperplasia, unspecified whether lower urinary tract symptoms present (N40.0) Active confirmed 869398043 VITAL SIGNS Blood pressure diastolic 86 mm Hg 05/10/2025 Height 70 in 05/10/2025 Blood pressure systolic 144 mm Hg 05/10/2025 Weight 181.2 lbs 05/10/2025 BMI 26.00 kg/m2 05/10/2025 Encounters Encounter Location Date Provider Diagnosis [address] [address] 07/20/2024 KYLE BUENO [address] [address] 08/09/2024 KYLE BUENO [address] [address] 11/02/2024 KYLE BUENO Essential (primary) hypertension I10 ; Chronic obstructive pulmonary disease, unspecified J44.9 ; Pulmonary nodule R91.1 and Leukocytosis, unspecified type D72.[address] [place] [address] 11/03/2024 KYLE BUENO Acute cystitis with hematuria N30.01 [facility] [address] [place] [address] 11/03/2024 KYLE BUENO [facility] [address] [place] [address] 11/11/2024 KYLE BUENO [facility] [address] [place] [address] 11/26/2024 KYLE BUENO [facility] [address] [place] [address] 12/01/2024 KYLE BUENO [facility] [address] [place] [address] 12/01/2024 KYLE BUENO Urinary tract infection in male N39.0 [facility] [address] [place] [address] 12/02/2024 KYLE BUENO [facility] [address] [place] [address] 12/23/2024 KYLE [facility] [address] [place] [address] 12/27/2024 ERICKSON WALKER Tachycardia R00.0 ; Essential (primary) hypertension I10 and COPD (chronic obstructive pulmonary disease) J44.9 [facility] [address] [place] [address] 12/28/2024 ERICKSON WALKER [facility] [address] [place] [address] 01/04/2025 ERICKSON WALKER [facility] [address] [place] [address] 01/10/2025 ERICKSON WALKER Essential (primary) hypertension I10 [facility] [address] [place] [address] 01/14/2025 KYLE BUENO [facility] [address] [place] [address] 01/17/2025 ERICKSON WALKER [facility] [address] [place] [address] 01/18/2025 KYLE BUENO [facility] [address] [place] [address] 01/26/2025 KYLE [facility] [address] [place] [address] 05/05/2025 KYLE BUENO [facility] [address] [place] [address] 05/10/2025 JUSTYNA JOSE White coat syndrome with hypertension I10 and COPD (chronic obstructive pulmonary disease) J44.9 [facility] [address] [place] [address] 05/11/2025 KYLE BUENO ASSESSMENTS Encounter Date Diagnosis Assessment Notes Treatment Notes Treatment Clinical Notes Section Notes 11/02/2024 Essential (primary) hypertension (ICD-10 - I10) Stable. Continue losartan follow-up in 6 months. Check basic metabolic profile 11/02/2024 Chronic obstructive pulmonary disease, unspecified (ICD-10 - J44.9) Stable. As needed beta 2. Continue Spiriva and Symbicort. Check CT of the chest that was done in September by Dr. Canchola. Follow-up with Dr. Hunt vaccinations all up-to-date 11/03/2024 Acute cystitis with hematuria (ICD-10 - N30.01) 12/01/2024 Urinary tract infection in male (ICD-10 - N39.0) 12/27/2024 Essential (primary) hypertension (ICD-10 - I10) BP is above goal. Pt believes he has white coat HTN. Follows with renal for BP mgt. Await holter, labs. Consider adding betablocker vs increasing amlodipine dose. He will start checking BP at home a few times per week 12/27/2024 Tachycardia (ICD-10 - R00.0) EKG sinus tachycardia, rate 104. Will do holter labs & follow up with results. 01/10/2025 Essential (primary) hypertension (ICD-10 - I10) BP elevated in office however home readings are better. Did 24 holter which did not show an arrhythmia, average HR mid 70s with some rates into 100s. Will add metoprolol 12.5 mg. Continue home BP checks 3 times weekly. Will see renal as well for BP follow up. Gave note today to return to work 05/10/2025 COPD (chronic obstructive pulmonary disease) (ICD-10 - J44.9) Follow-up with Dr. Canchola and pulmonology as scheduled. Currently up-to-date. Continue Spiriva 18 mcg 1 inhalation every other day, Symbicort 160/4.5 mcg 2 puffs twice a day and albuterol rescue inhaler as needed. No recent exacerbations and currently stable. Follow-up with Dr. Bueno in 6 months. 05/10/2025 White coat syndrome with hypertension (ICD-10 - I10) Good blood pressures at home. Lab work ordered. Continue amlodipine 2.5 mg daily, losartan 50 mg twice a day and metoprolol ER 25 mg half tablet in the evening. Discussed diet and exercise. Follow-up with Dr. Bueno in 6 months. Return sooner as needed. 12/27/2024 COPD (chronic obstructive pulmonary disease) (ICD-10 - J44.9) 11/02/2024 Pulmonary nodule (ICD-10 - R91.1) No symptoms await CT 11/02/2024 Leukocytosis, unspecified type (ICD-10 - D72.829) Recheck CBC 11/02/2024 Other With rectal exa m findings we will try Anusol with hydrocortisone twice daily for 2 weeks. No improvement patient to call back 01/10/2025 Other I am seeing the patient under the supervision of the co-signing physician. The physician was available for consultation at the time of the office visit. 12/27/2024 Other I am seeing the patient under the supervision of the co-signing physician. The physician was available for consultation at the time of the office visit. PLAN OF TREATMENT Next Appt Details Provider Name:KYLE Baker PINA BURRELL, 11/17/2025 01:45:00 PM, [address] [place], [address], Insurance Providers Payer Name Payer Address Payer Phone Subscriber Number Group Number Insured Name Patient Relationship to Insured Coverage Start Date Coverage End Date [employer] [address] [place] [phone] [id number] VIC FENTON Self - patient is the insured MEDICAL (GENERAL) HISTORY Medical History History ICD Code smoking COPD emphysema October 2023 TURP secondary to urinary retention and gross hematuria Dr. Guzmán September 2023 low-dose CAT s can of the [facility]. COPD and benign-appearing nodules Support Associate December 2023 Dr. Casanova Photoresist Contact Printer January 2024 Dr. Hunt O V Status post TURP October 2023 Dr. Thuy thompson Pertinent lab data January creatinine 1.0. Sugar 109. LFTs normal. PSA 6.3. Cholesterol 194 triglycerides 79 HDL 61 LDL 117 TSH normal A1c 6.[address] July [address] Serjio [facility] 2029 Vaccination status COVID 3 s hots. Flu shot q. year. Pneumovax x 2. Tetanus 2021. Pulmonary consult Dr. Hunt July 2024 Urology consult [facility] August 2024 Surgical History Surgery Date(Month/Year) hernia april 2012 hemorroidectomy 1994 Hospitalization History Reason Date(Month/Year)
--- OUTSIDE RECORDS SUMMARY | 2025-06-09 09:55 | XMS_ITS | Encounter Summary ---
Author Organization [facility] Address [address] [place] [address] Care Team Providers Care Injection Moulding Machine Operator Name Role Phone Pcp, No Primary Care Provider Unavailabl e Encounter Details Date Type Department Care Team (Late st Contact Info) Description 01/18/2016 Scanned Document [address] [phone] Provider, Generic Social History Tobacco Use Types [...] on filedocumented in this encounter Care Teams Injection Moulding Machine Operator Relationship Specialty Start Date End Date Pcp, No PCP - General General Medicine 08/18/15 documented as of this encounter
--- OUTSIDE RECORDS SUMMARY | 2025-06-09 09:55 | XMS_ITS | Clinical Summary ---
Author Organization [facility] Address [address] [place] [address] Phone Care Team Providers Care Sewer Contractor Name Role Phone Km Scott MD Primary Care Provider Allergies No known active allergies Medications losartan (COZAAR) 50 MG tablet Take 50 mg by mouth daily. Active tiotropium (SPIRIVA HANDIHALER) 18 mcg inhalation capsule Inhale 18 mcg into the lungs daily. Active budesonide-formo terol (SYMBICORT) 80-4.5 mcg/actuation inhaler Inhale 2 puffs into the lungs 2 (two) times a day. Active albuterol (PROVENTIL,RADHA GREG) 2 mg/5 mL syrup Take 2 mg by mouth 3 (three) times a day. Active tamsulosin (FLOMAX) 0.4 mg CapIndications:B ladder outlet obstruction Take 2 capsules (0.8 mg total) by mouth daily. 180 capsule 3 9 Active Active Problems No known active problems Social History Tobacco Use Types Packs/Day Years Used Date Smoking Tobacco: Former Smokeless Tobacco: Never Education Answer Date Recorded Are you interested in more education? Not on xavier e 01/31/2023 Are you concerned about learning? Not on file 01/31/2023 No 01/31/2023 No 01/31/2023 Digital Access Answer Date Recorded No 03/01/2023 No 03/01/2023 No 03/01/2023 Reliable internet access at home? Not on file 03/01/2023 Device with a working camera? Not on file Sex and Gender Information Value Date Recorded Sex Assigned at Not on file Legal Sex Male 2:59 PM EST Gender Identity Not on file Sexual Orientation Not on file Last Filed Vital Signs Vital Sign Reading Time Taken Comments Blood Pressure 145/75 10/29/2018 1:31 PM EST Pulse 97 10/29/2018 1:31 PM EST Temperature - - Respiratory Rate - - Oxygen Saturation - - Inhaled Oxygen Concentration - - Weight 78.5 kg (173 lb) 10/29/2018 1:31 PM EST Height 177.8 cm (5' 10 ) 10/29/2018 1:31 PM EST Body Mass Index 24.82 10/29/2018 1:31 PM EST Plan of Treatment Health Maintenance Due Date Last Done Comments Adult Td,Tdap Booster 1950 LIPID PANEL 1950 DEPRESSION SCREENING 1962 SMOKING Hx and SMOKELESS TOBACCO SCREENING 1963 HEPATITIS C SCREENING 1968 COLOGUARD 1995 COLONOSCOPY 1995 COLORECTAL CANCER SCREENING 1995 FIT TEST 1995 FOBT 1995 SIGMOIDOSCOPY 1995 VIRTUAL COLONOSCOPY 1995 PNEUMOCOCCAL VACCINES (50+ years) (1 of 1 - PCV) 2000 ZOSTER VACCINES (1 of 2) 2000 ABDOMINAL AORTIC ANEURYSM (AAA) SCREENING 2015 CREATININE LEVEL 10/29/2019 10/29/2018 POTASSIUM LEVEL 10/29/2019 10/29/2018 INFLUENZA VACCINE (#1) 2025 0, 07/06/2018, 07/21/2017, Additional history exists COVID-19 VACCINE (2024- season) 2025 01/05/2021, 12/08/2020 RSV VACCINE (1 - 1-dose 75+ series) 2025 HEPATITIS A VACCINES Aged Out No long er eligible based on patient's age to complete this topic HIB VACCINES Aged Out No longer eligi ble based on patient's age to complete this topic MENINGOCOCCAL VACCINES (ACWY) Aged Out No longer eligible based on patient's age to complete this topic MENINGOCOCCAL VACCINES (B) Aged Out N o longer eligible based on patient's age to complete this topic Medical Devices Not on file Procedures Procedure Name Priority Date/Time Associated Diagnosis Comments BASIC METABOLIC PANEL Routine 10/29/2018 3:28 PM EST Bladder outlet obstruction from Last 3 Months or Most Recently Relevant to Health Maintenance Results * Basic metabolic panel (10/29/2018 3:28 PM EST) SODIUM 140 135 - 145 mmol/L [facility] POTASSIUM 3.8 3.4 - 5.0 mmol/L [facility] CHLORIDE 100 98 - 108 mmol/L [facility] CO2 23 23 - 32 mmol/L [facility] BUN 11 8 - 25 mg/dL [facility] CREATININE 1.00 0.60 - 1.50 mg/dL [facility] GLUCOSE 98 70 - 110 mg/dL [facility] CALCIUM 10.4 8.5 - 10.5 mg/dL [facility] EGFR 77 >59 mL/min/1.7 3m2 [facility] Comment:If patient is black, multiply result by 1.159. Estimated glomerular filtration rate calculated using the CKD-EPI equation. ANION GAP 17 3 - 17 mmol/L [facility] 10/29/2018 3:28 PM EST 10/29/2018 10:21 PM EST us [facility] BLOOD ORDERABLES Final Result Performing Organization Address City/State/[facility] Co de Phone Number [address] [phone] from Last 3 Months or Most Recently Relevant to Health Maintenance Insurance OUT OF STATE PPO BLUE CROSS OUT OF STATE PPO BLUE CROSS OUT OF STATE PPO BLUE CROSS OUT OF STATE PPO BLUE CROSS OUT OF STATE PPO BLUE CROSS OUT OF STATE PPO BLUE CROSS OUT OF STATE PPO BLUE CROSS OUT OF STATE PPO BLUE CROSS OUT OF STATE PPO Care Teams Sewer Contractor Relationship Specialty Start Date End Date Km Scott MD [address] [place] [address] PCP - General Internal Medicine 10/15/18 Additional Source Comments The information contained in this document represents components of the legal health record. It is not the complete legal health record.[facility]
== END 2025-06-09 09:51 | disposition home or self-care (01) ==
LOC: HO.HKAS 09:18
PROVIDERS: PCP Internal Medicine; Visit Provider Internal Medicine Nephrology
DX: I10 Essential (primary) hypertension (principal)
CPT/HCPCS: 99214

== ENCOUNTER 2025-06-20 09:06 | Outpatient (REF) | payer OTHER, SELFPAY ==
--- NOTE | ~2025-06-20 | XR_ITS ---
EXAMINATION: XR CHEST CLINICAL INFORMATION: R05.3 - Chronic cough COMPARISON: December 15, 2024 TECHNIQUE: 2 views of the chest were obtained. FINDINGS: Pulmonary reticular pattern. No consolidation, pleural effusion or pneumothorax. Hyperinflated lungs. Cardiomediastinal silhouette size is small. Mild multilevel thoracic spondylosis. XR/XR chest 2V IMPRESSION: Chronic interstitial lung disease suggesting COPD emphysematous type changes without acute airspace disease. Electronically signed by: Julián Carbajal MD 06/20/2025 10:05 AM EDT
== END 2025-06-20 09:07 | disposition home or self-care (01) ==
LOC: HO.XRAY 09:06
PROVIDERS: PCP Internal Medicine; Visit Provider Hospitalist
DX: J41.0 Simple chronic bronchitis (principal); R91.8 Other nonspecific abnormal finding of lung field; K21.9 Gastro-esophageal reflux disease without esophagitis; Z87.891 Personal history of nicotine dependence
CPT/HCPCS: 71046

== ENCOUNTER 2025-06-20 09:06 | Outpatient (AMB) | payer OTHER, SELFPAY ==
[2025-06-20 09:07] VITALS: BP 142/70; PULSE 91; O2SAT 94; BMI 26.0
--- NOTE | 2025-06-20 09:07 | A.OFFVIS_ITS ---
Vital Signs 06/20/25 09:07 Height 5 ft 10 in Weight 181 lb BMI 26.0 BP 142/70 H Blood Pressure Location Lt brachial Position Sitting Pulse 91 Pulse Source Pulse Oximeter Pulse Oximetry (%) 94 Oxygen Delivery Method Room Air Intake Visit Reasons: COPD Allergies bee venom protein (honey bee) Allergy (Verified 06/20/25 09:14) Unknown Bees Allergy (Mild, Uncoded 12/15/24 09:01) swelling HPI Comments Details: The patient is a 74 y/o man with COPD. Overall doing well. Complains of cough, non productive, mild in nature. Using Symbicort with good effect. Denies any dyspnea. Went for 6 minute walk maintaining pox 96%. Had LDCT scan with RADS 2. Pulmonary nodules noted. ALso noted to have a large abdominal cyst. Has a ref erral with surgery at this time. 06/13/2023 the patient is here for pulmonary follow-up visit. Overall he is doing great. He continues with respiratory therapy. He is will be going surgery for his bladder issues. From a respiratory status he has no limitations. The patient continues to work full-time. The patient has not had any respiratory complaints. The patient has not required any prednisone or any hospitalizations. He will undergo spirometry today 6 minutes walk test. The patient is doing very well and is able to continue working without any limitations. 01/13/2024 the patient is here for a pulmonary follow-up visit. He has been complaining of a URI like symptoms. The patient has been having chest congestion and some sinus congestion. He has been sick now for about a week. Denies any fevers chills. His phlegm is congested in dark in color. Has not taking any prescription medications just cozc-aem-vhxwhgj Mucinex and Tylenol. He does feel a little bit tired. We did go for 6 minute walk test the patient was able to maintain a pulse ox above 88%. The lowest was 90%. Still lower than usual for him likely secondary to this viral illness. 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 Although, I do recommend that he can have a repeat 6 minute walk test in 6 months to make sure that he is recovered. He will require courses of antibiotics and short courses of Medrol to try and help him improve a little quicker. No imaging studies at this time unless the patient has any worsening symptoms. Will plan to have an x-ray done for his next visit in 6 months. 07/20/2024 patient is here for pulmonary follow-up visit. Overall the patient has been doing okay. Again he has a URI. He has been sick now for a couple weeks. Now bringing up some greenish yellowish phlegm. Moderate severity. Has been taking roqb-rqt-jhbzvvh medications with only partial improvement. Will go inside the [employer]. At that doxycycline but he does like milk and he understands that it may cause him to have increased adverse effects. Therefore will go ahead and just send him on [employer]. The patient also is participating in the lung cancer screening program. 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 He has not had any issues. He is doing well overall. 12/15/2024 the patient is here for pulmonary follow-up visit. Overall he is feeling better. He was treated for pneumonia several months ago. He is back to his baseline. He does get shortness of breath when going up a flight of stairs but overall close to his baseline. We did go for 6 minute walk test. His oxygen was stable between 92-94% with activity. He did not have to start. Will have any conversation while walking. Wanting noted those heart rate was indeed elevated up to about 115 beats per minute with minimal activity. Once he rested the heart rate elevated in the low 100s. Therefore him get an EKG just to see if he has any underlying cardiac arrhythmias. In addition to that will have him repeat the x-ray to make sure will follow-up with the pneumonia. But the patient throughout pulmonary standpoint is doing well. He does have some congestion. He was placed on Bactrim for a urinary tract infection and that should also cover the lungs 06/20/2025 the patient is here for pulmonary follow-up visit. Overall he is feeling better. He did have pneumonia back in the spring. He was treated effectively. He feels like he is back to his baseline. He is still working part-time with the heavy machinery. No issues at all. He did have initial with the elevated heart rate but he was placed on a small dose of metoprolol and that is been very effective for him. The patient does complain of chest congestion. Does have a component of chronic bronchitis. He is already maximize his respiratory therapy. Will go ahead and add azithromycin 3 times a week to see if this helps to decrease the mucus production with a chronic bronchitis. We also talked about roflumilast as another option in the future. Overall the patient is doing well. He will continue with his current respiratory therapy if he has any issues he can always call. He will have an x- ray today to make sure that we have cleared that right-sided airspace disease that he had on previous x-ray. If the findings are still present if the x-ray continues to be abnormal did additional imaging will be warranted. [facility] Medical History (Updated 12/15/24 @ 23:19 by Elvin Canchola MD) Personal history of nicotine dependence Pulmonary nodules Unspecified chronic bronchitis COPD (chronic obstructive pulmonary disease) Surgical History History of prostate surgery (~10/2023) Social History Patient Tobacco Use Status: Former Tobacco user Tobacco use type: Cigarette Years Smoked: 40 years Review of Systems Const Denies night sweats ENT Denies change in voice, Denies lip swelling, Denies mouth pain, Reports nasal congestion, Reports nasal discharge, Reports post nasal drip and Denies tongue swelling Card Denies chest pain Resp Reports chest congestion and Reports cough GI Denies abdominal pain Musc Denies no additional complaints Neuro Denies Neuro-related abnormal movements Psych Denies no additional complaints Venkatesh/Lymph Denies easy bleeding and Denies lymphadenopathy Aller/Immun Denies lip swelling and Denies tongue swelling Physical Exam Vital Signs: Last Vital Signs Pulse 91 06/20/25 09:07 BP 142/70 H 06/20/25 09:07 Pulse Ox 94 06/20/25 09:07 Oxygen Delivery Method Room Air 06/20/25 09:07 BMI result Body Mass Index 26.0 Const General: alert Neck Neck: Yes normal visual inspection, Yes full ROM and Yes no lymphadenopathy Chest Chest palpation & inspection: normal inspection of the chest Resp Auscultation: diminished lung sounds Cardio Rate: regular rate Rhythm: regular rhythm Heart sounds: S1 normal heart sound present and S2 normal heart sound present GI Palpation (GI): Soft to palpation and nontender Auscultation: normal bowel sounds Skin General skin exam: rashes and/or lesions noted Assessment & Plan Assessment & Plan (1) COPD (chronic obstructive pulmonary disease): Code(s): J44.9 - Chronic obstructive pulmonary disease, unspecified Category: Medical Qualifiers: COPD type: chronic bronchitis Chronic bronchitis type: simple Qualified Code(s): J41.0 - Simple chronic bronchitis (2) Cough: Code(s): R05.9 - Cough, unspecified Category: Medical Qualifiers: Cough type: chronic Qualified Code(s): R05.3 - Chronic cough (3) Pulmonary nodules: Code(s): R91.8 - Other nonspecific abnormal finding of lung field Category: Medical Plan continue Symbicort/Spiriva start Azithromycin MWF x 4 weeks consider Daliresp PAULINA as needed CXR F/U 6 months Orders: Orders XR chest 2V Today R05.3 - Chronic cough Medications: New azithromycin Take 1 tablet on Friday/Friday/Friday 250 mg PO 3XW 12 tabs 1RF 28 days K21.9 - Gastro-esophageal reflux disease without esophagitis Changed From albuterol sulfate 90 mcg/actuation 2 puffs PO Q4-6H PRN 6 ea 0RF for wheezing J41.0 - Simple chronic bronchitis To albuterol sulfate 90 mcg/actuation 2 puffs inhalation Q4-6H PRN 3 ea 3RF for wheezing 90 days J41.0 - Simple chronic bronchitis Coding Level of Care Code Est Pt Level 4 (38126) Complex EM visit Add On G2211 Diagnoses Simple chronic bronchitis J41.0 COPD type: chronic bronchitis Chronic bronchitis type: simple Chronic cough R05.3 Cough type: chronic Pulmonary nodules R91.8 Time Spent (min) 16
--- OUTSIDE RECORDS SUMMARY | 2025-06-20 10:43 | XMS_ITS | Encounter Summary ---
Author Organization [facility] Address [address] [place] [address] Care Team Providers Care Personal Financial Representative Name Role Phone Km Scott MD Primary Care Provider Encounter Details Date Type Department Care Team (Late st Contact Info) Description 12/15/2024 Lab Requisition [facility] - Main Lab [address] [facility] [place] [address] Donte Guzmán MD [address] [place] [address] Other abnormal findings in urine Social History [...] Enterococcus faecalis(A) MAHSA 12/16/2024 7:53 AM EDT [facility] ([facility]) [facility] Comment: Edited result: Previously reported as [...] us Donte Guzmán MD LAB MICROBIOLOGY - [facility] ORDERABLES Final Result [facility] ([facility]) [facility] [address] [place] [address], documented in this encounter Visit Diagnoses Diagnosis Other abnormal findings in urine documented in this encounter Care Teams Personal Financial Representative Relationship Specialty Start Date End Date Km Scott MD [address] [place] [address] PCP - General Internal Medicine 12/15/24 documented as of this encounter
--- OUTSIDE RECORDS SUMMARY | 2025-06-20 10:43 | XMS_ITS | Encounter Summary ---
Author Organization [facility] Address [address] [place] [phone] Phone Care Team Providers Care Leadership Coach Name Role Phone Km Scott MD Primary Care Provider [phone] Encounter Details Date Type Department Care Team (Late st Contact Info) Description 10/29/2018 Procedure Pass [facility] Imaging [address] [place] [address] Social History Tobacco Use Types Packs/Day Years [...] on filedocumented in this encounter Care Teams Leadership Coach Relationship Specialty Start Date End Date Km Scott MD [address] [place] [phone] PCP - General Internal Medicine 10/15/18 documented as of this encounter Additional Source Comments The information contained in this document represents components of the legal health record. It is not the complete legal health record.[facility]
--- OUTSIDE RECORDS SUMMARY | 2025-06-20 10:43 | XMS_ITS | Clinical Summary ---
Author Organization [facility] Address [address] [facility] [address] [place] [address] Phone Care Team Providers Care Business Systems Advisor Name Role Phone Km Scott MD Primary [...] patient's age to complete this topic Insurance [facility] Care Teams Business Systems Advisor Relationship Specialty Start Date End Date Km Scott MD [address] [place] [address] PCP - General 10/16/20
--- OUTSIDE RECORDS SUMMARY | 2025-06-20 10:43 | XMS_ITS | Encounter Summary ---
Author Organization [facility] Address [address] [place] [address] Care Team Providers Care Hydrogen Power Plant Engineer Name Role Phone Km Scott MD Primary Care Provider [phone] Encounter Details Date Type Department Care Team (Late st Contact Info) Description 08/18/2024 Lab Requisition [facility] - Main Lab [address] [facility] [place] [address] Orly Renee NP [address] [facility] [address] [place] [address] Other abnormal findings on microbiological examination of [...] Staphylococcus epidermidis(A) MAHSA 08/20/2024 7:51 AM EST [facility] Comment: Beta-lactamase positive Edited result: [...] MAHSA <=0.5 ug/ml: Susceptible us Orly Renee REGIONAL EDUCATION COORDINATOR LAB MICROBIOLOGY - GENERA L ORDERABLES Final Result [facility] ([facility]) [facility] [address] [place] [address], documented in this encounter Visit Diagnoses Diagnosis Other abnormal findings on microbiological examination of urine documented in this encounter Care Teams Hydrogen Power Plant Engineer Relationship Specialty Start Date End Date Km Scott MD [address] [place] [id number] PCP - General Internal Medicine 12/15/24 documented as of this encounter
--- OUTSIDE RECORDS SUMMARY | 2025-06-20 10:43 | XMS_ITS | Clinical Summary ---
Author Organization [facility] Address [address] [place] [address] Care Team Providers Care Evs Tech Name Role Phone Pcp, No Primary Care [...] age to complete this topic Care Teams Evs Tech Relationship Specialty Start Date End Date Pcp, No PCP - General General Medicine 08/18/15
--- OUTSIDE RECORDS SUMMARY | 2025-06-20 10:43 | XMS_ITS | Clinical Summary ---
Author Organization [address] Address [address] [place] [phone] Phone Care Team Providers Care Package Winder Name Role Phone Km Scott MD Primary Care Provider [phone] Surgical History Surgery Date Site/Laterality Comments HEMORRHOID [...] patient's age to complete this topic Insurance [facility] [place] [id number] Care Teams Package Winder Relationship Specialty Start Date End Date Km Scott MD [address] [place] [phone] PCP - General Internal Medicine 12/15/24
--- OUTSIDE RECORDS SUMMARY | 2025-06-20 10:44 | XMS_ITS | Clinical Summary ---
Author Organization [facility] Address [address] [place] [address] Care Team Providers Care Light Truck Driver Name Role Phone Unavailable Primary Care Provider [...]
--- OUTSIDE RECORDS SUMMARY | 2025-06-20 10:44 | XMS_ITS | Encounter Summary ---
Author Organization [facility] Address [address] [place] [address] Care Team Providers Care Movement Education Specialist Name Role Phone Pcp, No Primary Care Provider Unavailabl e Encounter Details Date Type Department Care Team (Late st Contact Info) Description 01/18/2016 Scanned Document [address] [phone] Provider, Generic Social History Tobacco Use Types [...] on filedocumented in this encounter Care Teams Movement Education Specialist Relationship Specialty Start Date End Date Pcp, No PCP - General General Medicine 08/18/15 documented as of this encounter
== END 2025-06-20 09:30 | disposition home or self-care (01) ==
LOC: HO.HPS 09:07
PROVIDERS: PCP Internal Medicine; Visit Provider Hospitalist
DX: J41.0 Simple chronic bronchitis (principal); R05.3 Chronic cough; R91.8 Other nonspecific abnormal finding of lung field
CPT/HCPCS: 99214

== ENCOUNTER → 2025-06-20 09:40 | Outpatient (BNV) | payer OTHER, SELFPAY | PROVIDERS: PCP Internal Medicine; Visit Provider Radiology Diagnostic Radiology | DX: J84.9 Interstitial pulmonary disease, unspecified (principal) | CPT/HCPCS: 71046 ==

== ENCOUNTER 2025-07-27 11:23 | Outpatient (REF) | payer OTHER, SELFPAY ==
[2025-07-27 12:33] LABS: MANUAL DIFF FLAG NO
[2025-07-27 13:41] LABS: Hematocrit 46.8 % (42.0-52.0); Hemoglobin 15.3 g/dl (14.0-18.0); Imm Gran Abs Auto 0.04 X10*3/uL (0.00-0.03); Imm Gran Pct Auto 0.5 % (0.0-0.4); Lymphocytes Absolute Auto 1.1 X10*3/uL (1.2-4.9); Mean Corpuscular HGB Conc 32.7 g/dl (31.0-36.0); Mean Corpuscular Hemoglobin 30.0 pg (27.0-33.0); Mean Corpuscular Volume 91.8 fL (80.0-98.0); NRBC Abs Auto 0.000 X10*3/uL (0.0-0.012); NRBC Pct Auto 0.0 /100WBC (0.0-0.2); Platelet Count 241 X10*3/uL (160-400); Red Blood Count 5.10 X10*6/uL (4.60-5.80); White Blood Count 7.8 X10*3/uL (4.8-10.8)
[2025-07-27 14:28] LABS: Alanine Aminotransferase 31 U/L (0-40); Albumin Level 4.5 g/dL (3.5-5.0); Alkaline Phosphatase 73 U/L (39-117); Anion Gap 8 (12-20); Aspartate Amino Transferase 40 U/L (5-37); Blood Urea Nitrogen 14 mg/dL (9-16); Calcium 9.5 mg/dL (8.4-10.2); Carbon Dioxide 26 mmol/L (22-29); Chloride 107 mmol/L (96-108); Cholesterol 203 mg/dL (<200); Estimated Glomerular Filt Rate > 60; HDL Cholesterol 50 mg/dL (>40); Potassium 4.0 mmol/L (3.3-5.1); Prostate Specific Antigen 7.76 ng/mL (<0.05-4.0); Sodium 137 mmol/L (135-145); Total Protein 6.9 g/dL (6.5-8.0); Triglycerides 108 mg/dL (<150)
== END 2025-07-27 11:24 | disposition home or self-care (01) ==
LOC: HO.LAB 11:23
PROVIDERS: PCP Internal Medicine; Visit Provider Physician Assistant
DX: Z12.5 Encounter for screening for malignant neoplasm of prostate (principal); I10 Essential (primary) hypertension; J41.0 Simple chronic bronchitis; K64.4 Residual hemorrhoidal skin tags; H60.549 Acute eczematoid otitis externa, unspecified ear; Z79.899 Other long term (current) drug therapy; Z87.891 Personal history of nicotine dependence
CPT/HCPCS: 36415; 80048; 80061; 80076; 84153; 85025

== ENCOUNTER 2025-07-27 11:23 | Outpatient (AMB) | payer OTHER, SELFPAY ==
--- NOTE | 2025-07-27 11:24 | A.OFFPC_ITS ---
Vital Signs 07/27/25 11:31 07/27/25 11:58 Height 5 ft 8.94 in Weight 81.647 kg BMI 26.6 BP 146/78 H 130/72 Blood Pressure Location Lt brachial Position Sitting Respiration 18 Pulse 73 Pulse Source Pulse Oximeter Temp 97.8 F Temp Source Temporal Artery Scan Pulse Oximetry (%) 93 Oxygen Delivery Method Room Air Intake Visit Reasons: to establish care Student Ministries Director Required: No Accompanied by: Self / Same As Patient Allergies bee venom protein (honey bee) Allergy (Verified 07/27/25 11:24) Unknown Bees Allergy (Mild, Uncoded 12/15/24 09:01) swelling Medication List - Last Reconciled 07/27/25 by AG Fletcher albuterol sulfate 90 mcg/actuation 2 puffs inhalation Q4-6H PRN 90 days amlodipine 2.5 mg PO DAILY budesonide-formoterol 160-4.5 mcg/actuation (Symbicort) 2 puffs inhalation BID 90 days hydrocortisone 2.5% appl topical DAILY latanoprost 0.005% 1 drp ophthalmic (eye) BEDTIME losartan 100 mg (2 x 50 mg) PO DAILY 90 days metoprolol succinate ER 12.5 mg (1/2 x 25 mg) PO QPM Spiriva with HandiHaler (tiotropium bromide) 1 cap inhalation DAILY 90 days NS triamcinolone acetonide 0.1% 1 appl topical BID PRN Tobacco use date assessed: 07/27/25 Fall risk assessment: No Falls in past year Last assessed Fall Risk: 07/27/25 Dental Screening Dental Screen Date: 07/27/25 Did you have a dental visit in the last 12 months?: Yes Did you have a dental problem in the last 6 months where you did not have access to dental care?: No Was dental information given to patient?: Patient has dentist HPI HPI Comments History of Present Illness Details 74-year-old male with history of COPD, h ypertension presenting to the office today for management of chronic conditions and to establish care. He is a former patient of Dr. Scott out of [facility], last seen 2 months ago. Hypertension-blood pressure in the office 146/78, repeat 130/72. Does check pressures at home with SBP typically in the 120s and DVT typically in the 70s. On amlodipine 2.5 mg daily, follows with Dr. Mercado in Nephrology COPD-managed with Spiriva, Symbicort for maintenance. Reports albuterol use about twice daily which is baseline. No recent exacerbation.Following with Dr. Canchola in pulmonology External hemorrhoid- intermittent xyears, now more frequent. Given hydrocortisone cream which was helpful. Spot of blood on TP. No mike blood. Pruritic, feels raw. s/p hemorrhoidectomy about 30 years ago in [place] . Last colonoscopy [facility], 10 year follow up, prn BPH- was symptomatic, s/p TURP. Still self caths twice daily. No malignancy. Follows with [facility] Hx cigarette smoking. 1.5-2ppd ongoing 40 years. Following with pulm and lung cancer program- last ct 09/28 no nodules Concern: Lesion behind R ear- intermittent x several years. Has been using bactene/neosporin which does resolve but returns. Has not changed. 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 No individual lesions or ulcerations Cardiovascular - S1S2, RRR, No edema Respiratory - Normal lung expansion, Normal respiratory effort, No respiratory distress, CTA bilaterally GI/rectal-slightly decreased rectal tone 2/5, 2/5 tone with squeeze test. Nonbleeding/nonthrombosed external hemorrhoids noted. No fissues. No engorged internal hemorrhoids noted. Stool occult test not performed, not available in office at this time. Declines maintenance advisor for sensitive exam Extremities - no calf tenderness bilaterally, no swelling Skin - Warm/Dry Neurological - Alert & oriented x3 Psychological - Appropriate affect [facility] Medical History (Updated 07/27/25 @ 12:12 by AG Fletcher) Personal history of nicotine dependence Pulmonary nodules Unspecified chronic bronchitis COPD (chronic obstructive pulmonary disease) Surgical History History of prostate surgery (~10/2023) Social History [facility] Patient Tobacco Use Status: Former Tobacco user Tobacco use type: Cigarette Years Smoked: 40 years-quit 14 years ago e-Cigarette/Vaping Use: Never Used service: No Current occupational status: employed Current occupation: [employer] X Questionnaire AUDIT C Alcohol Use Questionnaire (AUDIT-C) 1. How often do you have a drink containing alcohol?: Never 3. How often do you have six or more drinks on one occasion?: Never Total Score: 0 Physical exam (Primary Care) Vital Signs: Last Vital Signs Temp 97.8 F 07/27/25 11:31 Pulse 73 07/27/25 11:31 Resp 18 07/27/25 11:31 BP 146/78 H 07/27/25 11:31 Pulse Ox 93 07/27/25 11:31 Oxygen Delivery Method Room Air 07/27/25 11:31 BMI result Body Mass Index 26.6 Tobacco/Smoking Status: Tobacco use Status Tobacco use date assessed 07/27/25 07/27/25 11:34 Patient Tobacco Use Status Former Tobacco user 07/27/25 11:34 Tobacco use type Cigarette 07/27/25 11:34 e-Cigarette/Vaping Use Never Used 07/27/25 11:34 Coding Level of Care Code New Pt Level 4 (51272) Complex EM visit Add On G2211 Diagnoses Former smoker Z87.891 Primary hypertension I10 Hypertension type: primary hypertension Simple chronic bronchitis J41.0 COPD type: chronic bronchitis Chronic bronchitis type: simple External hemorrhoid K64.4 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 Continue following with the lung cancer screening program. Commended on smoking cessation (2) Hypertension: Code(s): I10 - Essential (primary) hypertension Category: Medical Qualifiers: Hypertension type: primary hypertension Qualified Code(s): I10 - Essential (primary) hypertension Plan: Controlled on recheck. Continue amlodipine 2.5 mg daily. Continue following with Nephrology. Continue checking pressures at home which have been stable. Low-sodium diet (3) COPD (chronic obstructive pulmonary disease): Code(s): J44.9 - Chronic obstructive pulmonary disease, unspecified Category: Medical Qualifiers: COPD type: chronic bronchitis Chronic bronchitis type: simple Qualified Code(s): J41.0 - Simple chronic bronchitis Plan: Stable. Continue maintenance inhalers, albuterol is indicated. Continue following with pulmonology, last note reviewed. (4) External hemorrhoid: Code(s): K64.4 - Residual hemorrhoidal skin tags Category: Medical Plan: No bleeding or thrombosis noted. Have been affecting him chronically, will refer to General surgery. Continue Anusol p.r.n. (5) Eczema of external ear: Code(s): H60.549 - Acute eczematoid otitis externa, unspecified ear Category: Medical Plan: Trial triamcinolone cream twice daily. If no improvement, consider referral to Dermatology. No concerning lesions at this time Plan Follow-up in the office in 6 months, labs to be completed today. Orders: Orders Complete Blood Count Auto Diff Today I10 - Essential (primary) hypertension, J41.0 - Simple chronic bronchitis, K64.4 - Residual hemorrhoidal skin tags Basic Metabolic Panel Today I10 - Essential (primary) hypertension, J41.0 - Simple chronic bronchitis, K64.4 - Residual hemorrhoidal skin tags Lipid Panel Today I10 - Essential (primary) hypertension, J41.0 - Simple chronic bronchitis, K64.4 - Residual hemorrhoidal skin tags Liver Panel Today I10 - Essential (primary) hypertension, J41.0 - Simple chronic bronchitis, K64.4 - Residual hemorrhoidal skin tags Prostate Specific Antigen Today I10 - Essential (primary) hypertension, J41.0 - Simple chronic bronchitis, K64.4 - Residual hemorrhoidal skin tags Referrals General Surgery Referral K64.4 - Residual hemorrhoidal skin tags Medications: New triamcinolone acetonide 0.1% 1 appl topical BID PRN 30 grams 1RF ear rash
[2025-07-27 11:31] VITALS: BP 146/78; PULSE 73; RESP 18; TEMP 36.6; O2SAT 93; BMI 26.6
[2025-07-27 11:58] VITALS: BP 130/72
--- OUTSIDE RECORDS SUMMARY | 2025-07-27 15:40 | XMS_ITS | Encounter Summary ---
Author Organization [facility] Address [address] [place] [address] Care Team Providers Care Charging Crane Operator Name Role Phone Pcp, No Primary Care Provider Unavailabl e Encounter Details Date Type Department Care Team (Late st Contact Info) Description 01/18/2016 Scanned Document [address] [phone] Provider, Generic Social History Tobacco Use Types [...] on filedocumented in this encounter Care Teams Charging Crane Operator Relationship Specialty Start Date End Date Pcp, No PCP - General General Medicine 08/18/15 documented as of this encounter
--- OUTSIDE RECORDS SUMMARY | 2025-07-27 15:40 | XMS_ITS | Encounter Summary ---
Author Organization [facility] Address [address] [place] [address] Care Team Providers Care Proofer Prepress Name Role Phone Km Scott MD Primary Care Provider Encounter Details Date Type Department Care Team (Late st Contact Info) Description 08/18/2024 Lab Requisition [facility] - Main Lab [address] [facility] [place] [address] Orly Renee NP [address] [facility] [address] [place] [address] Other abnormal findings on microbiological examination of [...] Staphylococcus epidermidis(A) MA[facility]SA 08/20/2024 7:51 AM EST [facility] Comment: Beta-lactamase [...] MAHSA <=0.5 ug/ml: Susceptible us Orly Renee TEMPER MILL OPERATOR LAB MICROBIOLOGY - GENERA L ORDERABLES Final Result [facility] [address] [place] [address], documented in this encounter Visit Diagnoses Diagnosis Other abnormal findings on microbiological examination of urine documented in this encounter Care Teams Proofer Prepress Relationship Specialty Start Date End Date Km Scott MD [address] [place] [id number] PCP - General Internal Medicine 12/15/24 documented as of this encounter
--- OUTSIDE RECORDS SUMMARY | 2025-07-27 15:40 | XMS_ITS | Clinical Summary ---
Author Organization [facility] Address [address] [place] [address] Care Team Providers Care Insole Stiffener Name Role Phone Unavailable Primary Care Provider [...] of 2) 2000 COVID-19 Vaccine ( - 2024-2 6 season) 2025 Influenza (#1) 2025 RSV (1 [...]
--- OUTSIDE RECORDS SUMMARY | 2025-07-27 15:40 | XMS_ITS | Encounter Summary ---
Author Organization [facility] Address [address] [place] [phone] Phone Care Team Providers Care Test Director Name Role Phone Km Scott MD Primary Care Provider [phone] Encounter Details Date Type Department Care Team (Late st Contact Info) Description 10/29/2018 Procedure Pass [facility] [address] [place] [address] Social History Tobacco Use Types Packs/Day Years [...] on filedocumented in this encounter Care Teams Test Director Relationship Specialty Start Date End Date Km Scott MD [address] [place] [phone] PCP - General Internal Medicine 10/15/18 documented as of this encounter Additional Source Comments The information contained in this document represents components of the legal health record. It is not the complete legal health record.[facility]
--- OUTSIDE RECORDS SUMMARY | 2025-07-27 15:40 | XMS_ITS | Encounter Summary ---
Author Organization [facility] Address [address] [place] [address] Care Team Providers Care Extender Name Role Phone Km Scott MD Primary Care Provider [phone] Encounter Details Date Type Department Care Team (Late st Contact Info) Description 12/15/2024 Lab Requisition [facility] - Main Lab [address] [facility] [address] Donte Guzmán MD [address] [place] [address] Other abnormal findings in urine Social History [...] Enterococcus faecalis(A) MAHSA 12/16/2024 7:53 AM EDT [facility] Comment: Edited result: Previously reported as [...] us Donte Guzmán MD LAB MICROBIOLOGY - [facility] [place] ORDERABLES Final Result [facility] [address] [place] [address], documented in this encounter Visit Diagnoses Diagnosis Other abnormal findings in urine documented in this encounter Care Teams Extender Relationship Specialty Start Date End Date Km Scott MD [address] [place] [address] PCP - General Internal Medicine 12/15/24 documented as of this encounter
--- OUTSIDE RECORDS SUMMARY | 2025-07-27 15:40 | XMS_ITS | Clinical Summary ---
Author Organization [address] Address [address] [place] [phone] Phone Care Team Providers Care Product Inspection Supervisor Name Role Phone Km Scott MD Primary Care Provider [phone] Surgical History Surgery Date Site/Laterality Comments HEMORRHOID [...] Date Last Done Comments Colorectal Cancer Screening: Colonoscopy 1950 DTaP,Tdap,and Td Vaccines (1 - Tdap) 1969 Pneumococcal Vaccine: 50+ Ye ars (1 of 2 - PCV) 1969 RSV Immunization Adult Patie nts (1 - Risk 50-74 years 1-dose series) 2000 Zoster Vaccines (1 of 2) 2000 Abdominal Aortic Aneurysm (A AA) Screen 09/08/2022 Cholesterol Screening (Lipid Panel) 09/08/2022 Falls Risk Assessment 09/08/2022 Hepatitis C Screening 09/08/2022 Social Influencers of Health Screening 09/08/2022 Depression Screening 10/06/2024 COVID-19 Vaccine (1 - 2023-2 5 season) 2025 Influenza Vaccine [...] to complete this topic Insurance [facility] [place] [id number] Care Teams Product Inspection Supervisor Relationship Specialty Start Date End Date Km Scott MD [address] [place] [id number] PCP - General Internal Medicine 12/15/24
--- OUTSIDE RECORDS SUMMARY | 2025-07-27 15:40 | XMS_ITS | Clinical Summary ---
Author Organization [facility] Address [address] [place] [address] Care Team Providers Care Automotive Welder Name Role Phone Pcp, No Primary Care [...] - 2023-2 5 season) 2025 RSV Vaccine 50 years and old er and Patients (1 - 1-dose 75+ series) 2025 Hepatitis B Vaccines Aged Out No long er eligible based on patient's age to complete this topic Care Teams Automotive Welder Relationship Specialty Start Date End Date Pcp, No PCP - General General Medicine 08/18/15
== END 2025-07-27 12:11 | disposition home or self-care (01) ==
LOC: HO.HMCHD 11:24
PROVIDERS: PCP Internal Medicine; Visit Provider Physician Assistant
DX: Z87.891 Personal history of nicotine dependence (principal); I10 Essential (primary) hypertension; J41.0 Simple chronic bronchitis; K64.4 Residual hemorrhoidal skin tags; H60.549 Acute eczematoid otitis externa, unspecified ear